=== PATIENT | female | born 1995 | race Caucasian/White ===

== ENCOUNTER → 2022-03-09 12:55 | Outpatient (CLI) | payer BC, SELFPAY ==
[2022-03-09 13:22] LABS: Appearance Urine UA CLEAR; Bilirubin Urine UA NEGATIVE (NEGATIVE); Color Urine UA YELLOW; Glucose Urine UA NEGATIVE (Negative); Ketones Urine UA NEGATIVE (NEGATIVE); Leukocyte Esterase Urine UA TRACE (NEGATIVE); Nitrite Urine UA NEGATIVE (Negative); Occult Blood Urine UA NEGATIVE (Negative); Protein Urine UA NEGATIVE (Negative); Specific Gravity Urine UA <=1.005 (1.000-1.035); Urobilinogen Urine UA 0.2 E.U./dL (0.2)
[2022-03-09 13:23] LABS: pH Urine UA 6.5 (4.5-8.0)
[2022-03-09 18:49] LABS: Bacteria Urine Occasional (0-1); RBC Urine 0-1/HPF (0-5/HPF); Squamous Epithelial Cell Urine 0-1 /HPF (0-5/HPF); WBC Urine 1-5/HPF (0-5/HPF)
== END ==
PROVIDERS: Visit Provider Family Medicine
DX: Z34.00 Encounter for supervision of normal first pregnancy, unspecified trimester (principal)
CPT/HCPCS: 81001; 87086

== ENCOUNTER → 2022-03-19 11:14 | Outpatient (CLI) | payer BC, SELFPAY ==
[2022-03-19 12:18] LABS: Add Manual Diff / Slide Review NO; Basophils Absolute Auto 0 /uL (0-100); Basophils Percent Auto 0.2 % (0-2); Eosinophils Absolute Auto 100 /uL (0-450); Eosinophils Percent Auto 0.6 % (2-4); Hematocrit 41.3 % (36-46); Hemoglobin 13.9 g/dL (12.0-16.0); Lymphocytes Absolute Auto 1800 /uL (1100-4500); Lymphocytes Percent Auto 19.3 % (25-40); Mean Corpuscular HGB Conc 33.7 % (30-36); Mean Corpuscular Hemoglobin 30.7 PG (26-34); Mean Corpuscular Volume 90.9 fL (80-100); Monocytes Absolute Auto 600 /uL (0-900); Monocytes Percent Auto 6.8 % (3-14); Neutrophils Absolute Auto 6900 /uL (1500-7000); Neutrophils Percent Auto 73.1 % (50-75); Platelet Count 256 X10^3/uL (150-400); Red Blood Cell Count 4.54 X10^6/uL (4.0-5.2); Red Cell Distribution Width 12.9 % (11.6-14.8); White Blood Cell Count 9.5 X10^3/uL (4.5-11.0)
[2022-03-19 13:29] LABS: HIV 1 & 2 Ab/Ag 4th Gen Combo NEGATIVE (NEGATIVE); Hep C Virus Ab w/Reflex Quant NEGATIVE s/c (NEGATIVE); Hepatitis B Surface Antigen NEGATIVE s/c (NEGATIVE); Rubella Antibody IgG 5.8 IU/mL (>15)
[2022-03-20 07:11] LABS: Varicella IgG Antibody <135 index (Immune >165)
[2022-03-20 08:05] LABS: RPR Screen Non Reactive (Non Reactive)
== END ==
PROVIDERS: Referring Provider Family Medicine; Visit Provider Family Medicine
DX: Z34.00 Encounter for supervision of normal first pregnancy, unspecified trimester (principal)
CPT/HCPCS: 36415; 80055; 86787; 86803; 86850; 86900; 86901; 87389

== ENCOUNTER → 2022-05-13 16:48 | Outpatient (CLI) | payer BC, SELFPAY ==
[2022-05-15 21:07] LABS: AFP, Serum 36.6 ng/mL (.); Calc Gestational Age Ultrasound (.); Estriol, Free 1.74 ng/mL (.); Inhibin A, Dimeric 45.02 pg/mL (.); Inhibin A, MoM 0.32 (.); Maternal Ethnicity Caucasian (.); Maternal Weight 165 lbs (.); Number of Fetuses No (.); OSBR Risk 1 IN 10000 (.); Results Report (.); Test Results *Screen Negative* (.); hCG, MoM 0.35 (.); hCG, Serum 10796 mIU/mL (.)
== END ==
PROVIDERS: Referring Provider Family Medicine; Visit Provider Family Medicine
DX: Z34.00 Encounter for supervision of normal first pregnancy, unspecified trimester (principal); Z3A.17 17 weeks gestation of pregnancy; Z34.92 Encounter for supervision of normal pregnancy, unspecified, second trimester
CPT/HCPCS: 36415; 82105; 82677; 84702; 86336

== ENCOUNTER → 2022-06-03 14:15 | Outpatient (CLI) | payer BC, SELFPAY ==
--- NOTE | 2022-06-03 14:16 | DI.US.S_ITS ---
PROCEDURE: US OB >= 14 WEEKS FETUS INDICATIONS: Anatomy Scan OUTSIDE/PRIOR DATING DATA: Last menstrual period (LMP): 01/02/22. LMP-based estimated date of delivery (SURESH): 10/09/22. First dating scan (date and location): 06/03/22, current study. Estimated date of delivery (SURESH) from first dating scan: 10/17/22. The calculations are made using the LMP SURESH of 10/09/22, and separate calculations were also made using an outside sonographic SURESH of 10/19/22. There is no documentation of this ultrasound. TECHNIQUE: Real-time scanning was performed of the fetus, with image documentation and biometric measurements. Endovaginal scanning: Not performed COMPARISON: None. FINDINGS: General: A single living intrauterine gestation is present. Presentation: Vertex. Placenta: Placental position is anterior , without previa. Amniotic fluid index: 13.8 cm, normal range is 5-24 cm. Single deepest vertical pocket is 4.1 cm. heart rate: 131 beats per minute. Maternal cervical canal: Closed and 4.6 cm long. Normal lower limit is 2.5 cm. biometrics: Biparietal diameter: 4.7 cm, 20 weeks, two days Head circumference: 17.8 cm, 20 weeks, two days Abdominal circumference: 16.0 cm, 21 weeks, one day Femur length: 3.4 cm, 20 weeks, four days LMP based gestational age: 21 weeks, five days Reported outside first-trimester ultrasound gestational age: 20 weeks, two days Composite gestational age from present scan: 20 weeks, four days Estimated weight and percentile: 378 g. Using LMP SURESH, this is a 9th percentile. Using reported first-trimester ultrasound gestational age, fetus is at 74th percentile. Anatomic survey: Neuro: Ventricles are non-dilated at less than 10 mm. Cisterna magna is normal at 3-11 mm. Cerebellum is normal in size and morphology. Nuchal skin fold: Normal at less than 6 mm between 14-21 weeks gestational age. Face: Nose and lips, facial profile are normal. Spine: No evidence for spina bifida. Heart: 4-chambered heart is present, with normal ventricular outflow tracts. Diaphragm: Diaphragm is intact. Stomach: Left-sided stomach is present. Kidneys: No hydronephrosis. Normal is less than 5 mm in 2nd trimester, less than 7 mm in 3rd trimester. Cord: 3-vessel cord has orthotopic insertion. Bladder: Normal in size. Extremities: All 4 extremities identified. IMPRESSION: 1. Single living intrauterine . 2. Symmetric growth and normal anatomy. 3. Please verify working SURESH. Estimated weight based on LMP SURESH is at the 9th percentile. Estimated weight based on reported, undocumented first-trimester ultrasound is at the 74th percentile. We strive to produce accurate, complete, and clear reports of imaging services. To assist us in improving patient care, this report was composed using standard report templates and voice recognition software. Therefore, it may contain abnormal punctuation, insertions and/or omissions. Occasional wrong-word or sound-alike substitutions may occur. Though we review the report and make efforts to correct it, we do recommend that the report be read carefully in proper context to recognize any text inaccuracies. Dictated by: Rosita Reynolds M.D. on 06/03/2022 at 17:45 Approved by: Rosita Reynolds M.D. on 06/03/2022 at 17:56
== END ==
PROVIDERS: Referring Provider Family Medicine; Visit Provider Family Medicine
DX: Z34.92 Encounter for supervision of normal pregnancy, unspecified, second trimester (principal); Z3A.20 20 weeks gestation of pregnancy
CPT/HCPCS: 76811

== ENCOUNTER → 2022-08-05 15:16 | Outpatient (CLI) | payer BC, SELFPAY ==
[2022-08-05 17:45] LABS: Add Manual Diff / Slide Review NO; Basophils Absolute Auto 0 /uL (0-100); Basophils Percent Auto 0.2 % (0-2); Eosinophils Absolute Auto 100 /uL (0-450); Eosinophils Percent Auto 0.6 % (2-4); Hematocrit 34.7 % (36-46); Hemoglobin 12.1 g/dL (12.0-16.0); Lymphocytes Absolute Auto 1600 /uL (1100-4500); Lymphocytes Percent Auto 14.1 % (25-40); Mean Corpuscular HGB Conc 34.8 % (30-36); Mean Corpuscular Hemoglobin 31.5 PG (26-34); Mean Corpuscular Volume 90.6 fL (80-100); Monocytes Absolute Auto 700 /uL (0-900); Monocytes Percent Auto 6.1 % (3-14); Neutrophils Absolute Auto 8800 /uL (1500-7000); Platelet Count 210 X10^3/uL (150-400); Red Blood Cell Count 3.84 X10^6/uL (4.0-5.2); Red Cell Distribution Width 12.9 % (11.6-14.8); White Blood Cell Count 11.2 X10^3/uL (4.5-11.0)
[2022-08-05 17:59] LABS: GTT (PREG) 1 Hour PP 50gm Dose 97 mg/dL (76-139)
[2022-08-05 18:52] LABS: TSH w/ Reflex to FT4 1.15 uIU/mL (0.47-4.68)
== END ==
PROVIDERS: Referring Provider Family Medicine; Visit Provider Family Medicine
DX: Z34.00 Encounter for supervision of normal first pregnancy, unspecified trimester (principal); E03.9 Hypothyroidism, unspecified
CPT/HCPCS: 36415; 82950; 84443; 85025

== ENCOUNTER → 2022-09-23 16:11 | Outpatient (CLI) | payer BC, SELFPAY ==
[2022-09-24 15:31] LABS: Strep Grp B PCR NEG for Grp B Strep
== END ==
PROVIDERS: Visit Provider Family Medicine
DX: Z36.85 Encounter for antenatal screening for Streptococcus B (principal)
CPT/HCPCS: 87653

== ENCOUNTER → 2022-09-24 15:00 | Outpatient (CLI) | payer BC, SELFPAY ==
--- NOTE | 2022-10-09 14:27 | P.HOLT.S_ITS ---
Apprentice Pattern Maker Report Referral & Results Date Patient Seen: 09/24/22 Requesting provider: Alicia Goyal Indication: Tachycardia Duration of monitoring (days): 7 Diary information: There were 3 patient triggered events and 3 patient diary entries Patient triggered events were associated with sinus rhythm only Patient diary events were associated with sinus rhythm and PACs Data: Minimum heart rate identified was 56 beats per minute at 00:20 on 09/25/2022 Maximum heart rate was sinus rhythm and 132 beats per minute at 21:27 on Less than 1% of identified beats were ventricular or supraventricular ectopic in origin, which would classify them as rare. There were no pauses of 3 seconds or longer, episodes of atrial fibrillation, or episodes of SVT identified on this study Impression: 7+ day cardiac monitor technician demonstrating rare supraventricular ectopy primarily as above. Clinical correlation suggested
== END ==
PROVIDERS: Referring Provider Family Medicine; Visit Provider Family Medicine
DX: R00.0 Tachycardia, unspecified (principal)
CPT/HCPCS: 93242; 93248

== ENCOUNTER 2022-10-07 16:27 | Outpatient (CLI) | payer BC, SELFPAY ==
--- NOTE | 2022-10-07 17:29 | PM.OBTRLD ---
Visit Information Visit Information Date of evaluation: 10/07/22 Primary OB Provider: Alicia Goyal Reason for Evaluation: Yes non-stress test Comments/Additional reasons for admission: 27yo at 38w2d here for NST due to FHT at 117 in clinic persistently. Pt is feeling her baby move regularly. No LOF, contractions, bleeding. [facility] Medical History (Updated 10/07/22 @ 17:48 by Alicia Goyal MD) Anxiety Depression Headache (~2008) Migraines (~2008) Surgical History (Updated 02/26/22 @ 11:31 by Pricilla Denton RN) History of wisdom tooth extraction Family History (Updated 03/08/22 @ 21:07 by Wendy Okeefe) Father Hypertension Grandfather Stomach cancer Grandmother Breast cancer Grandfather History of heart disease History of kidney problems Alzheimer's disease Social History marital status: number of children: 0 household members: spouse lives independently: Yes housing: house pets and animals: Yes (dogs, Cats - Toxoplasmosis aware) education level: college occupational status: employed and student current occupational exposures/hazards: No special tobias needs: No seatbelt use: always water heater temp set < 120 deg: No (will lower) working smoke detector in home: Yes fire extinguisher in home: Yes carbon monox detector in home: Yes firearms in home: Yes firearms unloaded and locked: Yes do you feel safe at home: Yes Smoking Status: Never smoker second hand exposure: No alcohol intake: former substance use type: 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 NST reactive today. Continue regular care. OB Disposition: home
== END 2022-10-07 17:45 | disposition home or self-care (01) ==
LOC: OB 10-12 07:58
PROVIDERS: Referring Provider Family Medicine; Visit Provider Family Medicine
DX: O36.8330 Maternal care for abnormalities of the fetal heart rate or rhythm, third trimester, not applicable or unspecified (principal); Z3A.38 38 weeks gestation of pregnancy
CPT/HCPCS: 59025; G0378; G0379

== ENCOUNTER 2022-10-22 12:58 | Observation (INO) | payer BC, SELFPAY ==
--- NOTE | 2022-10-22 15:20 | PM.OBTRLD ---
Visit Information Visit Information Date of evaluation: 10/22/22 Primary OB Provider: Alicia Goyal On-call OB Provider: Katie Lima Reason for Evaluation: Yes rule out labor Vital Signs Vital Signs: Temperature 37.1? blood pressure 137/85 heart rate 81 PFSH Medical History Anxiety Depression Headache (~2008) Migraines (~2008) Surgical History History of wisdom tooth extraction Family History Father Hypertension Grandfather Stomach cancer Grandmother Breast cancer Grandfather History of heart disease History of kidney problems Alzheimer's disease Social History marital status: number of children: 0 household members: spouse lives independently: Yes housing: house pets and animals: Yes (dogs, Cats - Toxoplasmosis aware) education level: college occupational status: employed and student current occupational exposures/hazards: No special tobias needs: No seatbelt use: always water heater temp set < 120 deg: No (will lower) working smoke detector in home: Yes fire extinguisher in home: Yes carbon monox detector in home: Yes firearms in home: Yes firearms unloaded and locked: Yes do you feel safe at home: Yes Smoking Status: Never smoker second hand exposure: No alcohol intake: former substance use type: 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 weight has: remained stable well-balanced diet: about half the time daily servings fruits/ve-1 caffeine: Yes (200mg limit) Type(s) of exercise: walking, regular exercise and yoga frequency: 3-4 times per week Evaluation Evaluation Baseline heart rate: 120 Variability: Moderate (11-25) monitor accelerations: Present Monitor Decelerations: Absent Contraction Frequency (minutes): 3 Category of Tracing: Reactive Status: Category l Cervical dilation (cm): 2 Cervical effacement (%): 90 station: -3 Diagnosis, Plan/Disposition Final Diagnosis (1) 40 weeks gestation of : Status: Acute Plan/Disposition Plan: 27-year-old at 40 weeks and 3 days gestation here for labor check. She was raman every 5-7 minutes though contractions spaced towards the end of her stay in the center. NST reactive. Cervix was unchanged after 2 hours, likely an early labor. 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 OB Disposition: home
== END 2022-10-22 15:32 | disposition home or self-care (01) ==
PROVIDERS: Admitting Provider Family Medicine; Referring Provider Family Medicine; Visit Provider Family Medicine
DX: O48.0 Post-term pregnancy (principal); Z3A.40 40 weeks gestation of pregnancy
CPT/HCPCS: 59025; 59050; 84112; G0378; G0379

== ENCOUNTER 2022-10-22 21:34 | Inpatient (IN) | payer BC, SELFPAY ==
[2022-10-22 22:18] VITALS: BP 133/84
[2022-10-22 22:39] LABS: Add Manual Diff / Slide Review NO; Basophils Absolute Auto 0 /uL (0-100); Basophils Percent Auto 0.1 % (0-2); Eosinophils Absolute Auto 0 /uL (0-450); Eosinophils Percent Auto 0.1 % (2-4); Hematocrit 37.5 % (36-46); Hemoglobin 12.3 g/dL (12.0-16.0); Lymphocytes Absolute Auto 1500 /uL (1100-4500); Lymphocytes Percent Auto 9.4 % (25-40); Mean Corpuscular HGB Conc 32.9 % (30-36); Mean Corpuscular Hemoglobin 29.3 PG (26-34); Mean Corpuscular Volume 89.3 fL (80-100); Monocytes Absolute Auto 800 /uL (0-900); Monocytes Percent Auto 5.1 % (3-14); Neutrophils Absolute Auto 13500 /uL (1500-7000); Neutrophils Percent Auto 85.3 % (50-75); Platelet Count 250 X10^3/uL (150-400); White Blood Cell Count 15.8 X10^3/uL (4.5-11.0)
[2022-10-22 22:43] LABS: COVID19 -Nasal RAPID Negative (Negative)
[2022-10-23] MEDS: LACTATED RINGERS 1,000 ML 999 ML IV (00:05)
[2022-10-23] MEDS: fentaNYL 100 MCG/2 ML INJ 50 MCG IV (00:11)
[2022-10-23] MEDS: FENT 2MCG/ML BUPIV 0.125% EPI 200 MCG/100 ML PLAST..BAG 6 MCG EPIDURAL (00:50)
[2022-10-23] MEDS: TERBUTALINE 1 MG/ML VIAL SUBCUT (01:48)
--- NOTE | 2022-10-23 02:15 | PM.OBHP.IH.1 ---
OB HPI Date/Time Date of admission: 10/22/22 Date Patient Seen: 10/23/22 Time Patient Seen: 02:15 History of Present Condition Chief complaint: observation of labor SURESH Calculator Estimated Delivery Date Method Current WG Current Estimate 10/19/22 Manual 40w 4d Final SURESH - TUYET Other Estimates 10/09/22 LMP (Uncertain) 42w 0d 10/19/22 Ultrasound #1 40w 4d Estimated Gestational Age (weeks): 40w4d : 1 Para: 0 Narrative: Pt is a 27yo at 40w4d who presented with leaking fluid. The pt reports having a gush of fluid around 20:30. Her contractions began getting more intense shortly after. She denies any vaginal bleeding. She was in L&D earlier in the day yesterday for r/o labor, with her cervix unchanging. The pts has been uncomplicated. care: good care, initiated at week # (8) and pounds weight gain (36) Dating criteria OB: based on 1st trimester US only Ultrasounds: normal 1st trimester US and normal mid trimester US Obstetrical complications: none Medical complications OB: none Preadmission Labs Last OB Lab Results: Blood Type O Positive 10/22/22 22:15 Antibody Screen Negative 10/22/22 22:15 Hematocrit 37.5 % (36-46) 10/22/22 22:15 Hemoglobin 12.3 g/dL (12.0-16.0) 10/22/22 22:15 Hepatitis B Surface Antigen Negative s/c (NEGATIVE) 03/19/22 11:20 Hepatitis C Antibody Negative s/c (NEGATIVE) 03/19/22 11:20 Rubella Antibody 5.8 IU/mL (>15) L 03/19/22 11:20 Varicella-Zoster IgG Antibody <135 index (Immune >165) L 03/19/22 11:20 Glucose 1 Hour 97 mg/dL (76-139) 08/05/22 16:21 Group B Streptococcus (PCR) Neg for grp b strep 09/23/22 16:11 -: Urine: negative Genetic Screens: Quad screen: Normal External Labs -: Urine: negative Evaluation Evaluation Baseline heart rate: 130 Variability: Moderate (11-25) monitor accelerations: Present Monitor Decelerations: Absent Status: Category l Dilation (cm): 6 Effacement (%): 80 PFSH Medical History Anxiety Depression Headache (~2008) Migraines (~2008) Surgical History History of wisdom tooth extraction Family History Father Hypertension Grandfather Stomach cancer Grandmother Breast cancer Grandfather History of heart disease History of kidney problems Alzheimer's disease Social History marital status: number of children: 0 household members: spouse lives independently: Yes housing: house pets and animals: Yes (dogs, Cats - Toxoplasmosis aware) education level: college occupational status: employed and student current occupational exposures/hazards: No special tobias needs: No seatbelt use: always water heater temp set < 120 deg: No (will lower) working smoke detector in home: Yes fire extinguisher in home: Yes carbon monox detector in home: Yes firearms in home: Yes firearms unloaded and locked: Yes do you feel safe at home: Yes Smoking Status: Never smoker second hand exposure: No alcohol intake: former substance use type: 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 weight has: remained stable well-balanced diet: about half the time daily servings fruits/ve-1 caffeine: Yes (200mg limit) Type(s) of exercise: walking, regular exercise and yoga frequency: 3-4 times per week Meds Home Medications and Allergies Home Medications Medication Instructions Recorded Confirmed Type prenat.vits,valeria,[id number] 1 tab PO DAILY 02/26/22 10/22/22 History breast pump #1 ea 09/16/22 10/22/22 Rx Allergies Allergy/AdvReac Type Severity Reaction Status Date / Time No Known Drug Allergies Allergy Unverified 10/21/22 10:08 OB Exam Narrative Exam Narrative: Gen: NAD, sitting comfortably in bed, appears well CV: RRR, no murmurs Resp: clear to auscultation bilaterally Abd: soft, nontender, gravid Ext: no edema Objective Labs Result Diagrams: 10/22/22 22:15 Labs: Laboratory Results - last 24 hr 10/22/22 10/22/22 10/22/22 22:05 22:15 22:15 WBC 15.8 H RBC 4.20 Hgb 12.3 Hct 37.5 MCV 89.3 MCH 29.3 MCHC 32.9 RDW 13.0 Plt Count 250 Neut % (Auto) 85.3 H Lymph % (Auto) 9.4 L [place] % (Auto) 5.1 Eos % (Auto) 0.1 L Baso % (Auto) 0.1 Neut # (Auto) 20884 H Lymph # (Auto) 1500 [place] # (Auto) 800 Eos # (Auto) 0 Baso # (Auto) 0 SARS-CoV-2 (PCR) Negative Blood Type O Positive Antibody Screen Negative Assessment and Plan Assessment and Plan Assessment and Plan narrative: 27yo at 40w4d here in active labor with SROM at home. GBS negative, Rh positive. Pt with prolonged deceleration to the 60s lasting nearly 10 minutes. Improved after position change to hands and knees, terbutaline, oxygen, and fluid bolus. FHT now reassuring and Category I. Most likely due to brief cord compression/more rapid descent or cervical change. - Expectant management, cautiously monitoring FHT, which are now reassuring. If with decels again, would recommend . This was discussed with the patient. - GBS negative, no prophylaxis indicated - Epidural in place for pain control
[2022-10-23] MEDS: LACTATED RINGERS 1,000 ML 100 ML IV (02:44)
[2022-10-23] MEDS: CEFAZOLIN 2 GM/100 ML PREMIX 100 ML IV (05:18)
--- NOTE | 2022-10-23 05:56 | SUR.OPER ---
quarter folder arrived to OR with patient on the table bump in place, , OB RN, Anesthesiologists, RT Present, Myers in place from OB
--- NOTE | 2022-10-23 06:08 | SUR.OPER ---
Supine on Padded OR bed, head on pillow, safety belt at thigh, arms secured on padded arm boards at <90 degrees abduction. Bump under right buttock. Legs uncrossed with pillow under knees, gel pad to heels, tape over blanket to lower legs.
[2022-10-23 06:40] VITALS: BP 95/53; PULSE 92; RESP 16; TEMP 36.5; O2SAT 100
[2022-10-23 06:46] VITALS: BP 94/53; PULSE 87; RESP 16; O2SAT 100
--- NOTE | 2022-10-23 06:47 | RT ---
RESPONDED TO CRASH , STIMULATED BABY AND MACARIO ABG AND VENOUS OFF OF CORD, LEFT BABY IN CARE OF THE RN
[2022-10-23 06:49] VITALS: BP 103/57; PULSE 87; RESP 16; TEMP 36.6; O2SAT 100
--- NOTE | 2022-10-23 07:15 | PM.OBPNLAB ---
Date/Time Date Patient Seen: 10/23/22 Pain Control Pain control: epidural Pelvic Exam Dilation (cm): 6 Effacement (%): 90 station: -1 Status status: Category lll Heart Rate Baseline: 60 Monitor Accelerations: Absent Monitor Decelerations: Prolonged Monitor Variability: Moderate Assessment and Plan Comments: * Late entry * 27yo at 40w4d here in active labor with SROM at home.? GBS negative, Rh positive.? Pt with intermittent late decels, now with repeat prolonged decel to the 50s and not recovering with position changes. Decision was made to proceed with emergent for nonreassuring heart tones. FHT did improve to the 100-110s prior to removal from monitoring. FHT 130s in the OR. Pt consented to surgery prior to incision. Risks discussed including but not limited to infection, bleeding/hemorrhage, injury to other organs such as the bowel/bladder, injury to fetus. The pt is agreeable to blood transfusion if medically necessary. Consent was signed and placed in chart. The pt will receive Ancef prior to surgery. SCDs to be placed.
--- NOTE | 2022-10-23 07:31 | PM.PREOP ---
Pre-operative Note COVID-19 COVID-19 status: Negative Result date/Date tested (Pos, Neg/Pending): 10/22/22 Interval Note History & Physical reviewed/Exam performed by Physician: Yes Changes to H&P: No
--- NOTE | 2022-10-23 07:32 | PM.OBCS.1 ---
Operative Date/Time/Diagnoses Date of procedure: 10/23/22 Time of procedure: 05:30 Pre-op diagnosis: 40w4d gestation GBS negative Rh positive Nonreassuring FHT with Category III tracing Post-op diagnosis: same Procedure & Clinicians Procedure: Primary Same procedure as scheduled: Yes Indications: Nonreassuring heart tones Surgeon: Alicia Goyal Click Yes if Unassisted: No Boat Master: Katie Lima Anesthesia Type: Epidural Operative Notes Findings: Normal uterus, ovaries, and tubes Closure Type: primary Specimen(s): cord blood and cord pH Intraoperative meds administered: Duramorph, Ketorolac and Pitocin Applied: Catheter Estimated Blood Loss (mL): 750 Blood products transfused: none Procedure in detail: OPERATIVE COURSE: The patient was taken to the operating room where epidural anesthesia was rebolused. She was then prepared and draped in the normal sterile fashion in the dorsal supine position with a leftward tilt. Anesthesia was tested and found to be adequate. A Pfannensteil skin incision was then made with the scalpel and carried through to the underlying layer of fascia with the bovie[]scalpel. The fascia was incised in the midline and the incision extended laterally with the Palafox scissors. The superior aspect of the fascial incision was then grasped with Ronni clamps, elevated with the help of the surgical instrument technician, and the underlying rectus muscles dissected off bluntly and sharply where needed. Attention was then turned to the inferior aspect of the incision which, in a similar fashion, was grasped, tented up with Ronni clamps, and the rectus muscle dissected off bluntly and sharply with Palafox scissors. The rectus muscles were then in the midline, and the peritoneum was identified and entered bluntly. The peritoneal incision was then extended with good visualization of the bladder. Retraction was provided by the surgical instrument technician. The bladder blade was then inserted and the vesicouterine peritoneum identified, grasped with pick-ups and entered sharply with the Metzenbaum scissors. The incision was then extended laterally and the bladder flap created digitally. The bladder blade was then reinserted and the lower uterine segment incised in a transverse fashion with the scalpel, with the surgical instrument technician providing suction. The uterine incision was then extended superolaterally by pulling superolaterally on both sides. Membranes were ruptured and fluid was clear. The bladder blade was removed the infant's head was flexed out of OP position and delivered atraumatically, with fundal pressure by the surgical instrument technician. Body cord was unwrapped after delivery. The nose and mouth were suctioned with bulb suction and the cord was clamped and cut after 1 minute. The infant was handed off to the waiting nursing staff. Cord blood was collected for Rh status. Cord gases were sent. The placenta was then delivered with gentle cord traction. The uterus was then exteriorized and cleared of all clots and debris. The uterine incision was repaired with O-Vicryl in a running, locked fashion. A second layer of the same suture was used for imbrication. A figure of eight with O Vicryl was used on the left side of the incision for excellent hemostasis. The uterus was returned to the abdomen. The gutters were cleared of all clots. Hysterotomy was investigated and found to be hemostatic. The bladder flap was closed with 3-O Chromic. The peritoneum was closed with 3-O Vicryl. The fascia was reapproximated with O Vicryl in a running fashion. The subcutaneous tissue was reapproximated with 3-O Vicryl. The skin was closed with 4-O Vicryl. The surgical instrument technician helped with retraction during closures. SPONGE AND NEEDLE COUNTS: Correct x3. DRESSING: Aquacel ANTICOAGULATION: SCDs applied prior to Surgery Preop antibiotics given (see MAR). The patient was taken to recovery room having tolerated procedure well. Complications: none Baby 1: Gender: Male Presentation: vertex Position: Occiput Posterior Placental Delivery Description: Spontaneous Cord Vessel Description: 3 Vessels and Around Body x1 score (1 min): 9 score (5 min): 9 weight: 8 lb 3.219 oz Post-operative Condition: stable Disposition: PACU Aftercare: routine postop
[2022-10-23] MEDS: OXYCODONE IR 5 MG TABLET PO ×3 (10:33→21:06)
[2022-10-23] MEDS: DOCUSATE 100 MG CAPSULE 200 MG PO (10:34)
[2022-10-23] MEDS: ACETAMINOPHEN 325 MG TABLET 650 MG PO ×3 (10:34→23:43)
[2022-10-23] MEDS: PRENATAL VIT,CALC/IRON/FOLIC 1 TABLET 1 TAB PO (10:34)
[2022-10-23] MEDS: KETOROLAC 30 MG/ML VIAL IV ×3 (11:52→23:42)
[2022-10-24] MEDS: IBUPROFEN 600 MG TABLET PO ×2 (05:18→13:05)
[2022-10-24] MEDS: ACETAMINOPHEN 325 MG TABLET 650 MG PO ×2 (05:19→13:06)
[2022-10-24] MEDS: OXYCODONE IR 5 MG TABLET PO ×3 (05:19→15:29)
[2022-10-24 08:20] LABS: Add Manual Diff / Slide Review NO; Basophils Absolute Auto 0 /uL (0-100); Basophils Percent Auto 0.2 % (0-2); Eosinophils Absolute Auto 0 /uL (0-450); Eosinophils Percent Auto 0.4 % (2-4); Hematocrit 28.3 % (36-46); Hemoglobin 9.5 g/dL (12.0-16.0); Lymphocytes Absolute Auto 1300 /uL (1100-4500); Lymphocytes Percent Auto 11.5 % (25-40); Mean Corpuscular HGB Conc 33.4 % (30-36); Mean Corpuscular Hemoglobin 29.7 PG (26-34); Mean Corpuscular Volume 88.8 fL (80-100); Monocytes Absolute Auto 1100 /uL (0-900); Monocytes Percent Auto 9.4 % (3-14); Neutrophils Absolute Auto 8800 /uL (1500-7000); Neutrophils Percent Auto 78.5 % (50-75); Platelet Count 172 X10^3/uL (150-400); Red Blood Cell Count 3.19 X10^6/uL (4.0-5.2); Red Cell Distribution Width 13.3 % (11.6-14.8); White Blood Cell Count 11.3 X10^3/uL (4.5-11.0)
[2022-10-24] MEDS: PRENATAL VIT,CALC/IRON/FOLIC 1 TABLET 1 TAB PO (09:25)
[2022-10-24] MEDS: DOCUSATE 100 MG CAPSULE 200 MG PO (09:26)
[2022-10-24 09:27] VITALS: TEMP 36.6
[2022-10-24 13:05] VITALS: TEMP 36.8
[2022-10-24 13:06] VITALS: TEMP 36.8
--- NOTE | 2022-10-24 14:05 | PM.OBDS.1 ---
Discharge Providers Provider Date of admission: 10/22/22 21:34 Discharge Date: 10/24/22 Primary care physician: Katie Lima DO Consults: 10/23/22 07:16 Consult to Open Hearth Worker Routine Comment: Discharge provider: Alicia Goyal MD Summary Hospital Course Date Patient Seen: 10/24/22 Time Patient Seen: 14:05 Diagnoses: 40w4d gestation GBS negative Rh positive Nonreassuring FHT with Category III tracing Primary Acute blood loss anemia Hospital Course: The pt presented in active labor with SROM at home. She progressed to 6cm, and then had a prolonged deceleration that recovered with position changes and terbutaline. The pt then had intermittent late decels, and ultimately a prolonged decel to the 60s. She was taken emergently to the OR, where FHT had improved. Due to nonreassuring FHT, the pt underwent primary without complications. She delivered a viable baby boy with APGARs 9/9. , there were no complications. At the time of discharge she was voiding, ambulating, and passing flatus without difficulty. Her lochia was decreasing appropriately. She was with good latch. Her pain was well controlled. She will f/u in clinic in 1 week for incision check. Peripartum Data Infant Delivery Method: Section Procedures: Primary complications: none [place] 1: Gender: Male Disposition of : home Discharge Diagnosis (1) Acute blood loss anemia: Status: Acute (2) Non-reassuring heart tones, delivered, current hospitalization: Status: Acute (3) S/P : Status: Acute (4) Category III heart rate tracing during labor and delivery: Status: Acute Status at Discharge Cognitive/behavioral status at discharge: oriented Functional status at discharge: independent ambulation Overall status at discharge: patient is progressing back to baseline Time Spent with Patient Time attestation: Total time spent providing and/or coordinating discharge services: Objective Labs Result Diagrams: 10/24/22 07:58 Labs: Laboratory Results - last 24 hr 10/24/22 07:58 WBC 11.3 H RBC 3.19 L Hgb 9.5 L Hct 28.3 L MCV 88.8 MCH 29.7 MCHC 33.4 RDW 13.3 Plt Count 172 Neut % (Auto) 78.5 H Lymph % (Auto) 11.5 L [place] % (Auto) 9.4 Eos % (Auto) 0.4 L Baso % (Auto) 0.2 Neut # (Auto) 8800 H Lymph # (Auto) 1300 [place] # (Auto) 1100 H Eos # (Auto) 0 Baso # (Auto) 0 Exam Vital Signs (past 8 hours): - 10/24/22 09:27 10/24/22 13:05 10/24/22 13:06 Temperature 97.8 F 98.2 F 98.2 F Oxygen Delivery Method Room Air Resp Auscultation: clear to auscultation bilaterally Cardio Rate: regular rate Rhythm: regular rhythm Heart Sounds: S1 normal, S2 normal and no murmurs GI Inspection: non-distended and incision (dressing c/d/i) Palpation: soft, No guarding and tender (appropriately tender) Auscultation: normal bowel sounds Other: fundus firm and below the umbilicus Extrem Right upper extremity: no edema Discharge Plan Discharge Plan Patient Disposition: Home Discharge orders & Medications Prescriptions: New acetaminophen 325 mg Tablet 650 mg PO Q6H PRN (Reason: Fever/Mild Pain (1-3)) Qty: 30 0RF docusate sodium 100 mg Capsule 200 mg PO DAILY Qty: 30 0RF ibuprofen 600 mg Tablet 600 mg PO Q6H PRN (Reason: Fever/Mild Pain (1-3)) Qty: 30 0RF oxycodone 5 mg Tablet 5 mg PO Q4H PRN (Reason: Pain, Moderate (4-6)) Qty: 30 0RF ferrous sulfate 325 mg (65 mg iron) tablet 325 mg PO DAILY Qty: 30 0RF Continued (DME) breast pump Device See Rx Instructions .ROUTE .MEDSUPPLY Qty: 1 0RF Rx Instructions: As directed prenat.vits,valeria,[id number] Tablet 1 tab PO DAILY Follow up/Referrals: Alicia Goyal MD [Physician] - 10/28/22 10:00 am Katie Lima DO [Primary Care Provider] - Diet/Activity/Treatments Diet: Diet as Tolerated and Regular Skin/Wound/Dressing Care Report to your healthcare provider any signs of infection, such as:: chills, fever, increased pain and unusual drainage Visit Report/Discharge Packet Instructions: DI for , DI for and Nipple Soreness, DI for Prescription Opioid Use Stand Alone Forms: Discharge: Care Visit Report Forms: Patient Portal/API, Stroke Signs & Symptoms Discharge Data Primary Care Provider: Katie Lima Discharges patient from system. Discharge Date/Time: 10/24/22 16:55
[2022-10-24 15:17] VITALS: BP 123/73; PULSE 78; RESP 16; TEMP 36.8
[2022-10-24 15:29] VITALS: TEMP 36.8
[2022-10-24] MEDS: MEASLES,MUMPS,RUBELLA VACC/PF 0.5 ML VIAL SUBCUT (15:34)
== END 2022-10-24 16:55 | disposition home or self-care (01) | DRG 788 ==
PROVIDERS: Admitting Provider Family Medicine; PCP Family Medicine; Referring Provider Family Medicine; Visit Provider Family Medicine
PROC: 10D00Z1 Extraction of Products of Conception, Low, Open Approach (ICD-10-PCS; CPT 59514; principal; 2022-10-23 05:15)
DX: O76 Abnormality in fetal heart rate and rhythm complicating labor and delivery (principal); Z3A.40 40 weeks gestation of pregnancy; Z37.0 Single live birth; Z20.822 Contact with and (suspected) exposure to COVID-19; O48.0 Post-term pregnancy
CPT/HCPCS: 36415; 59025; 59050; 59510; 59514; 84112; 85025; 86850; 86900; 86901; 87635; C9803; G0378; G0379; J0690; J1885; J2250; J2274; J3010

== ENCOUNTER 2024-01-25 15:23 | Emergency (ER) | payer BC, SELFPAY ==
[2024-01-25] VITALS (11 sets, daily range): BP systolic 112–142; BP diastolic 67–81; PULSE 95–112; RESP 18–37; TEMP 37.1; O2SAT 94–100; BMI 27.4
--- NOTE | 2024-01-25 15:44 | DI.RAD.S_ITS ---
PROCEDURE: XR CHEST 1V INDICATIONS: chest pain TECHNIQUE: One view of the chest was acquired. COMPARISON: None. FINDINGS: Surgical changes and devices: None. Lungs and pleura: Lungs are clear. No pleural effusions or pneumothorax. Mediastinum: Mediastinal contours appear normal. Heart size is normal. Bones and chest wall: No suspicious bony lesions. Overlying soft tissues appear unremarkable. IMPRESSION: No acute cardiopulmonary abnormality is seen. Dictated by: Germania Barboza MD, PhD on 01/25/2024 at 16:20 Approved by: Germania Barboza MD, PhD on 01/25/2024 at 16:20
[2024-01-25 16:15] LABS: Bacteria Urine None Seen; Culture Indicated Urine Cult Not Indicated; RBC Urine None Seen (0-5/HPF); Squamous Epithelial Cell Urine 0-1 /HPF (0-5/HPF); Urine Volume Low Vol <10mL (spun); WBC Urine None Seen (0-5/HPF)
[2024-01-25 16:47] LABS: Add Manual Diff / Slide Review NO; Basophils Absolute Auto 100 /uL (0-100); Basophils Percent Auto 0.5 % (0-2); Eosinophils Absolute Auto 0 /uL (0-450); Eosinophils Percent Auto 0.1 % (2-4); Hematocrit 40.8 % (36-46); Hemoglobin 13.7 g/dL (12.0-16.0); Lymphocytes Absolute Auto 1200 /uL (1100-4500); Lymphocytes Percent Auto 10.9 % (25-40); Mean Corpuscular HGB Conc 33.7 % (30-36); Mean Corpuscular Hemoglobin 29.8 PG (26-34); Mean Corpuscular Volume 88.4 fL (80-100); Monocytes Absolute Auto 1100 /uL (0-900); Monocytes Percent Auto 9.7 % (3-14); Neutrophils Absolute Auto 8800 /uL (1500-7000); Neutrophils Percent Auto 78.8 % (50-75); Platelet Count 270 X10^3/uL (150-400); Red Blood Cell Count 4.61 X10^6/uL (4.0-5.2); Red Cell Distribution Width 13.6 % (11.6-14.8); White Blood Cell Count 11.2 X10^3/uL (4.5-11.0)
[2024-01-25 16:54] LABS: INR 1.1 (0.9-1.3); Prothrombin Time 12.6 SECONDS (9.4-12.5)
[2024-01-25 16:57] LABS: PTT Partial Thromboplastin Tim 39 SECONDS (25.1-36.5)
[2024-01-25 16:59] LABS: Alanine Aminotransferase 13 IU/L (<35); Albumin 4.1 g/dL (3.5-5.0); Albumin Globulin Ratio 1.2 (1.0-2.8); Alkaline Phosphatase 58 U/L (38-126); Aspartate Aminotransferase 19 IU/L (14-36); BUN Creatinine Ratio 7.8 (6-22); Bilirubin Total 0.5 mg/dL (0.2-1.3); Blood Urea Nitrogen 6 mg/dL (7-17); Carbon Dioxide 28 mmol/L (22-32); Chloride 105 mmol/L (98-107); Creatine Kinase 33 U/L (30-135); Estimated Glomerular Filt Rate > 60 mL/min (>60); Globulin 3.5 g/dL (1.7-4.1); Glucose 98 mg/dL (70-100); HEMOLYSIS < 15 (0-50); Lipase 54 U/L (23-300); Magnesium 1.7 mg/dL (1.6-2.3); Sodium 138 mmol/L (137-145); Total Protein 7.6 g/dL (6.3-8.2)
[2024-01-25 17:04] LABS: D Dimer 796 ng/ml (<500)
[2024-01-25 17:10] LABS: Troponin I < 0.012 ng/mL (0.01-0.034)
[2024-01-25 17:16] LABS: Pregnancy Test Serum,Qual Positive (Negative)
[2024-01-25 17:28] LABS: Influenza A - CEPHEID Flu A NEGATIVE (NEGATIVE); Influenza B - CEPHEID Flu B NEGATIVE (NEGATIVE); Respiratory Syncytial Virus Negative (Negative)
[2024-01-25 17:35] LABS: COVID-19 CEPHEID 4-PLEX PCR Negative (Negative)
[2024-01-25 17:56] LABS: HCG Quantitative /Beta subunit 3.5 mIU/mL
--- NOTE | 2024-01-25 19:03 | DI.US.S_ITS ---
PROCEDURE: US PERIPH VENOUS LOW EXTREM BI INDICATIONS: ELEVATED HEART RATE TECHNIQUE: Real-time imaging, as well as color and pulse Doppler interrogation, were performed of the deep veins of both legs from the inguinal ligament to the popliteal fossa, with documentation of the visualized calf veins. COMPARISON: None. FINDINGS: Right: The common femoral, femoral, popliteal, and the visualized calf veins are normally compressible, and free of intraluminal thrombus. Color and pulse Doppler demonstrate normal phasic intravascular flow. There is normal augmentation response to distal compression maneuver. Left: The common femoral, femoral, popliteal, and the visualized calf veins are normally compressible, and free of intraluminal thrombus. Color and pulse Doppler demonstrate normal phasic intravascular flow. There is normal augmentation response to distal compression maneuver. IMPRESSION: No evidence of DVT in visualized bilateral lower extremity veins. Dictated by: Toy Palomo M.D. on 01/25/2024 at 21:32 Approved by: Toy Palomo M.D. on 01/25/2024 at 21:32
[2024-01-25] MEDS: ACETAMINOPHEN 325 MG TABLET 650 MG PO (19:48)
--- NOTE | 2024-01-25 19:51 | ED.GENADULT ---
HPI - General Adult General Chief complaint: Dizziness Stated complaint: rapid heart rate over 100 for past 4 hrs Time Seen by Provider: 01/25/24 16:49 Source: patient Mode of arrival: Ambulatory History of Present Illness HPI narrative: 28-year-old female who denies substantial medical history presents with episodes of tachycardia and malaise today. She states she felt her heart beat fast and her watch said it was quick a few times today. She denies chest or abdominal or back or flank pain, head or neck pain, lightheadedness or passing out, fevers or chills, N/V, rash. She is sexually active with spouse, with no contraception, though they are not trying to get . She has fairly regular periods, with last starting recently, slightly ahead of schedule. She denies recent surgery or travel, personal history of blood clots, hormone use, smoking, drug use, recent leg swelling or pain. No cough, sore throat, rhinorrhea, or myalgias. No other new concerns. Per chart review, she has history of cardiac event monitor showing possible rare SVT. Related Data Home Medications Medication Instructions Recorded Confirmed prenat.vits,valeria,[id number] 1 tab PO DAILY 02/26/22 12/04/22 Previous Rx's Medication Instructions Recorded breast pump #1 ea 09/16/22 acetaminophen 325 mg tablet 650 mg (2 x 325 mg) PO Q6H PRN 10/24/22 Fever/Mild Pain (1-3) #30 tabs docusate sodium 100 mg capsule 200 mg (2 x 100 mg) PO DAILY #30 10/24/22 caps ferrous sulfate 325 mg (65 mg 325 mg PO DAILY #30 tabs 10/24/22 iron) tablet ibuprofen 600 mg tablet 600 mg PO Q6H PRN Fever/Mild Pain 10/24/22 (1-3) #30 tabs oxycodone 5 mg tablet 5 mg PO Q4H PRN Pain, Moderate 10/24/22 (4-6) #30 tabs Allergies Allergy/AdvReac Type Severity Reaction Status Date / Time No Known Drug Allergies Allergy Unverified 12/04/22 15:28 Review of Systems Review of Systems Narrative: Constitutional: no fever, no chills Eyes: no visual disturbance, no discharge Ears, Nose, Mouth, Throat: no rhinorrhea, no sore throat Cardiovascular: no chest pain, + palpitations Respiratory: no cough, no shortness of breath Gastrointestinal: no abdominal pain, no vomiting, no diarrhea Genitourinary: no dysuria, no hematuria Musculoskeletal: no back pain, no neck stiffness Skin: no rash, no wound Neurological: no focal weakness, no focal numbness Patient History Medical History (Updated 11/25/22 @ 11:02 by Tegan Sylvester DO) Headache (~2008) Migraines (~2008) Depression Anxiety Surgical History (Updated 10/25/22 @ 20:19 by Alicia Goyal MD) S/P History of wisdom tooth extraction Family History Father Hypertension Grandfather Stomach cancer Grandmother Breast cancer Grandfather History of heart disease History of kidney problems Alzheimer's disease Social History marital status: number of children: 0 household members: spouse lives independently: Yes housing: house pets and animals: Yes (dogs, Cats - Toxoplasmosis aware) education level: college occupational status: employed and 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 current occupational exposures/hazards: No special tobias needs: No seatbelt use: always water heater temp set < 120 deg: No (will lower) working smoke detector in home: Yes fire extinguisher in home: Yes carbon monox detector in home: Yes firearms in home: Yes firearms unloaded and locked: Yes do you feel safe at home: Yes Smoking Status: Never smoker second hand exposure: No alcohol intake: former substance use type: 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 weight has: remained stable well-balanced diet: about half the time daily servings fruits/ve-1 caffeine: Yes (200mg limit) Type(s) of exercise: walking, regular exercise and yoga frequency: 3-4 times per week Smoking Status: Never smoker alcohol intake frequency: holidays/special occasions only Substance Use Type: does not use Exam Narrative Exam Narrative: Const: no acute distress, non toxic appearing; calm, conversant, pleasant Eyes: PERRLA, EOMI ENT: mucous membranes moist Neck: supple, non-tender Resp: no respiratory distress, clear to auscultation bilaterally Card: regular rate and rhythm, no murmurs Abd: non tender diffusely, no rigidity or rebound or guarding Back: no T or L spine tenderness, no CVA tenderness bilaterally Extrem: no deformities, no swelling bilateral lower extremities, 2+ distal pulses all extremities Neuro: ANOx4, mediation commissioner 2-12 intact, intact sensation and strength all extremities, normal coordination Skin: no rash, warm and dry Initial Vital Signs Initial Vital Signs: Vital Signs Temperature 98.8 F 01/25/24 15:36 Pulse Rate 110 H 01/25/24 15:36 Respiratory Rate 18 01/25/24 15:36 Blood Pressure 140/81 01/25/24 15:36 Pulse Oximetry 100 01/25/24 15:36 Oxygen Delivery Method Room Air 01/25/24 15:36 Course Course Course Narrative: This patient presents with episodes of malaise and tachycardia today, in the setting of a history of possible SVT, though she currently feels well. No chest pain, shortness of breath, syncope, or evidence of DVT on exam. No clear evidence of infection. She is fully neurovascularly intact. I have considered a broad differential including but not limited to viral syndrome, electrolyte derangements, intravascular volume depletion, ALIN, hypothyroidism, pulmonary embolism, pneumonia, pneumothorax, anemia, among others. In this setting, I am obtaining broad workup including EKG, CBC, CMP, troponin, D-dimer, hCG, chest x-ray, TSH. EKG shows sinus tachycardia without clear acute ischemia or immediately concerning interval prolongation, without recent for comparison. Note I do see T-wave inversions in leads III and AVF and we will trend this. Repeat EKG shows sinus tachycardia with overall similar morphology, no evidence of progression, no STEMI, no immediately concerning interval prolongation. Labs show mild leukocytosis without anemia or thrombocytopenia. INR within normal limits. PTT mildly elevated. D-dimer is elevated. CMP overall reassuring. Troponin reassuring. Serum qualitative was positive, but quantitative was added which is technically within limits for non patients. Urine without clear infection. Viral swab negative. I spoke with the patient again. It is possible that she is having a miscarriage, given some recent vaginal bleeding. Her HCG is very, very low, with ectopic extremely unlikely in this setting, particularly with no abdominal pain. In addition, her D-dimer could be due to her potential miscarriage. On the chance this is an early viable , we are not pursuing CTA PE study to avoid radiation but rather obtaining DVT ultrasounds in both legs, particularly in the setting of a history and exam that does not suggest pulmonary embolism currently. I confirmed again she has had no chest pain or shortness of breath. No current evidence of SVT, though intermittent episodes of this are still possible. Patient understands that if DVT ultrasound is negative, we anticipate discharge with close follow up and return precautions. We discussed she has some EKG abnormalities, and that she will need close follow-up and strict return precautions. She and spouse understand this with no other new concerns. Radiology review of imaging below, which I agree with on my independent review: CXR: FINDINGS: Surgical changes and devices: None. Lungs and pleura: Lungs are clear. No pleural effusions or pneumothorax. Mediastinum: Mediastinal contours appear normal. Heart size is normal. Bones and chest wall: No suspicious bony lesions. Overlying soft tissues appear unremarkable. IMPRESSION: No acute cardiopulmonary abnormality is seen. Dictated by: Germania Barboza MD, PhD on 01/25/2024 at 16:[address] Machado at 8:00PM with plan to follow up TSH and DVT US. If reassuring, I anticipate discharge would be reasonable as above. Orders Ordered: ED Orders 01/25/24 15:44 XR chest 1V Stat EKG-12 Lead Stat 01/25/24 15:45 Urine Microscopic Stat 01/25/24 16:32 Beta HCG, Quant [HCG Quantitative /Beta subunit] Stat Complete Blood Count AUTO DIFF Stat Comprehensive Metabolic Panel Stat D Dimer Stat Lipase Stat Magnesium Stat PTT Partial Thromboplastin Willi Stat Test Serum,Qual Stat Prothrombin Time INR Stat Troponin & CK Cardiac Panel Stat 01/25/24 16:46 Covid-19 + FLU A/B + RSV - PCR Stat 01/25/24 17:06 EKG-12 Lead Routine 01/25/24 19:03 US extremity nonvasc lower lt Stat US extremity nonvasc lower rt Stat 01/25/24 19:51 TSH [Thyroid Stimulating Hormone] Stat Discontinued Medications Acetaminophen (Acetaminophen 325 Mg Tablet) 650 mg PO NOW ONE Stop: 01/25/24 19:46 Last Admin: 01/25/24 19:48 Dose: 650 mg Documented By: BS Vital Signs Vital signs: Vital Signs - 8 hr 01/25/24 15:36 01/25/24 17:32 01/25/24 18:01 Temperature 98.8 F Pulse Rate 110 H 98 H 100 H Respiratory Rate 18 24 Blood Pressure 140/81 Pulse Oximetry 100 100 94 Oxygen Delivery Method Room Air Room Air 01/25/24 18:02 01/25/24 18:02 01/25/24 18:30 Temperature Pulse Rate 100 H Respiratory Rate 28 H Blood Pressure 126/78 112/67 Pulse Oximetry 99 Oxygen Delivery Method 01/25/24 18:30 01/25/24 19:00 01/25/24 19:00 Temperature Pulse Rate 96 H 95 H Respiratory Rate 27 H 22 Blood Pressure 117/74 Pulse Oximetry 99 98 Oxygen Delivery Method Room Air Medical Decision Making Lab Data 01/25/24 16:32 01/25/24 16:32 Labs: Lab Results 01/25/24 01/25/24 01/25/24 Range/Units 15:45 16:32 16:46 WBC 11.2 H (4.5-11.0) X10^3/uL RBC 4.61 (4.0-5.2) X10^6/uL Hgb 13.7 (12.0-16.0) g/dL Hct 40.8 (36-46) % MCV 88.4 (80-100) fL MCH 29.8 (26-34) PG MCHC 33.7 (30-36) % RDW 13.6 (11.6-14.8) % Plt Count 270 (150-400) X10^3/uL Neut % (Auto) 78.8 H (50-75) % Lymph % (Auto) 10.9 L (25-40) % [place] % (Auto) 9.7 (3-14) % Eos % (Auto) 0.1 L (2-4) % Baso % (Auto) 0.5 (0-2) % Neut # (Auto) 8800 H (3882-2654) /uL Lymph # (Auto) 1200 (3229-4485) /uL [place] # (Auto) 1100 H (0-900) /uL Eos # (Auto) 0 (0-450) /uL Baso # (Auto) 100 (0-100) /uL PT 12.6 H (9.4-12.5) SECONDS INR 1.1 (0.9-1.3) APTT 39 H (25.1-36.5) SECONDS D-Dimer 796 H (<500) ng/ml Sodium 138 (137-145) mmol/L Potassium 4.0 (3.4-5.1) mmol/L Chloride 105 (98-107) mmol/L Carbon Dioxide 28 (22-32) mmol/L BUN 6 L (7-17) mg/dL Creatinine 0.77 (0.52-1.04) mg/dL Estimated GFR > 60 (>60) mL/min BUN/Creatinine Ratio 7.8 (6-22) Glucose 98 (70-100) mg/dL Calcium 9.0 (8.4-10.2) mg/dL Magnesium 1.7 (1.6-2.3) mg/dL Total Bilirubin 0.5 (0.2-1.3) mg/dL AST 19 (14-36) IU/L ALT 13 (<35) IU/L Alkaline Phosphatase 58 (38-126) U/L Total Creatine Kinase 33 (30-135) U/L Troponin I < 0.012 (0.01-0.034) ng/mL Total Protein 7.6 (6.3-8.2) g/dL Albumin 4.1 (3.5-5.0) g/dL Globulin 3.5 (1.7-4.1) g/dL Albumin/Globulin Ratio 1.2 (1.0-2.8) Lipase 54 (23-300) U/L HCG, Quant 3.5 mIU/mL Serum , Qual Positive H (Negative) Urine RBC None seen (0-5/HPF) Urine WBC None seen (0-5/HPF) Ur Squamous Epith Cells 0-1 /hpf (0-5/HPF) Urine Bacteria None seen (None) Ur Culture Indicated? Cult not indicated Vol Urine Centrifuged Low vol <10ml (spun) A SARS-CoV-2 (PCR) Negative (Negative) Influenza A (RT-PCR) Flu a negative (NEGATIVE) Influenza B (RT-PCR) Flu b negative (NEGATIVE) RSV (PCR) Negative (Negative) Point of Care Testing Test Results Negative Urine Dip Bedside Urine Glucose Negative Bedside Urine Bilirubin - Negative Bedside Urine Ketone - Negative Urine Specific [place] 1.015 Bedside Urine Occult Blood +/- Bedside Urine pH 6.0 Bedside Urine Protein - Negative Bedside Urine Urobilinogen - Negative Bedside Urine Nitrite - Negative Bedside Urine Leukocytes - Negative Esterase Point of care testing: Point of Care Testing Test Results Negative Urine Dip Bedside Urine Glucose Negative Bedside Urine Bilirubin - Negative Bedside Urine Ketone - Negative Urine Specific [place] 1.015 Bedside Urine Occult Blood +/- Bedside Urine pH 6.0 Bedside Urine Protein - Negative Bedside Urine Urobilinogen - Negative Bedside Urine Nitrite - Negative Bedside Urine Leukocytes - Negative Esterase Discharge Plan Departure Activity Restrictions/Additional Instructions: It was a pleasure taking care of you today. It is important to fully read and understand the below. Please ask us if you have any questions. As discussed, you have some EKG abnormalities. In addition, your test was borderline positive and it has called D-dimer is elevated. It is very important you are reassessed within 2 days by a doctor. If you feel worse or have any new symptoms, please immediately return. Take this she to your doctor for further testing. No tests or assessments are perfect, and your condition could change management coordinator time. If your symptoms change or worsen, it is very important you immediately seek medical care. If you have any new or worsening pain, lightheadedness or passing out, feeling her heart beating funny, worsening bleeding, shortness of breath, fever, vomiting, confusion, numbness, weakness, or anything else that concerns you, please immediately seek medical care. If you have been prescribed any medications: please read the drug package inserts on how to properly use the medication and any potential side effects. If you had labs (blood tests) or imaging (CT scan or x-rays) done during your visit: please follow up on the results of these with your primary care doctor, as discussed. In addition, please know the results we received today may be preliminary. Our usual practice is to follow up on tests within a few days of a patient's discharge from the Emergency Department and notify you of any changes. These may lead to changes to your treatment plan. However, the best way to obtain and interpret these test results is through your Primary Care Provider. If you need to update your contact information, please stop by the front desk officer and alert the Registration personnel before you leave the Emergency Department. Thank you for the opportunity to participate in your healthcare. We are always here and happy to see you in the future. Prescriptions: No Action (DME) breast pump Device See Rx Instructions .ROUTE .MEDSUPPLY Qty: 1 0RF Rx Instructions: As directed prenat.vits,valeria,[id number] Tablet 1 tab PO DAILY acetaminophen 325 mg Tablet 650 mg PO Q6H PRN (Reason: Fever/Mild Pain (1-3)) Qty: 30 0RF docusate sodium 100 mg Capsule 200 mg PO DAILY Qty: 30 0RF ibuprofen 600 mg Tablet 600 mg PO Q6H PRN (Reason: Fever/Mild Pain (1-3)) Qty: 30 0RF oxycodone 5 mg Tablet 5 mg PO Q4H PRN (Reason: Pain, Moderate (4-6)) Qty: 30 0RF ferrous sulfate 325 mg (65 mg iron) tablet 325 mg PO DAILY Qty: 30 0RF Referrals: Katie Lima DO [Primary Care Provider] -
[2024-01-25 20:40] LABS: Thyroid Stimulating Hormone 1.63 uIU/mL (0.47-4.68)
[2024-01-25] MEDS: KETOROLAC 30 MG/ML VIAL 15 MG IV (21:15)
[2024-01-25] MEDS: SODIUM CHLORIDE 0.9% 1,000 ML 1000 ML IV (21:15)
== END 2024-01-25 22:08 | disposition home or self-care (01) ==
PROVIDERS: Emergency Provider Emergency Medicine; PCP Family Medicine
DX: R00.0 Tachycardia, unspecified (principal); R07.9 Chest pain, unspecified; O02.1 Missed abortion
CPT/HCPCS: 0241U; 36415; 71045; 80053; 81003; 81015; 81025; 82550; 83690; 83735; 84443; 84484; 84702; 84703; 85025; 85379; 85610; 85730; 93005; 93970; 96361; 96374; 99284; 99285; J1885

== ENCOUNTER → 2024-02-04 10:48 | Outpatient (CLI) | payer BC, SELFPAY ==
[2024-02-04 13:26] LABS: Pregnancy Test Serum,Qual Positive (Negative)
== END ==
LOC: LAB 10:48
PROVIDERS: PCP Family Medicine; Referring Provider Family Medicine; Visit Provider Family Medicine
DX: N93.9 Abnormal uterine and vaginal bleeding, unspecified (principal)
CPT/HCPCS: 36415; 84703

== ENCOUNTER → 2024-02-15 14:50 | Outpatient (CLI) | payer BC, SELFPAY ==
--- NOTE | 2024-02-15 14:51 | DI.US.S_ITS ---
PROCEDURE: US PELVIC COMPLETE INDICATIONS: DATES; BLEEDING TECHNIQUE: Real-time scanning was performed of the pelvic organs, with image documentation. Additional endovaginal scanning was necessary due to incomplete visualization of the adnexal and endometrial structures by transabdominal scanning. COMPARISON: None. FINDINGS: Uterus: Uterus is anteverted and normal in size at 7.7 x 3.9 x 5.8 cm. The myometrium is homogeneous. The endometrium measures 13.5 mm combined thickness. No intrauterine . Ovaries: The right ovary measures 3.5 x 1.7 x 1.6 cm, with a calculated ovarian volume of 5.0 cc. The left ovary measures 6.2 x 3.3 x 5.3 cm, with a calculated ovarian volume of 56.4 cc. The ovaries have a normal sonographic appearance. There is a large simple cyst in right ovary measuring 4.1 x 5.5 x 3.1 cm. Superior medial to the left ovary, there is a 2.0 x 1.6 x 2.0 cm masslike structure without vascularity. There is moderate free fluid in pelvis. Other: No pathologic free abdominal or pelvic fluid. IMPRESSION: 1. There is a 2.0 x 1.6 x 2.0 cm masslike structure superior medial to the left ovary. Cannot rule out ectopic . Please correlate with serum beta HCG. 2. A large simple appearing cyst in the left ovary measuring 4.1 x 5.5 x 3.1 cm. 3. There is a moderate amount of free fluid in pelvis. The result was discussed with Dr. Knapp. We strive to produce accurate, complete, and clear reports of imaging services. To assist us in improving patient care, this report was composed using standard report templates and voice recognition software. Therefore, it may contain abnormal punctuation, insertions and/or omissions. Occasional wrong-word or sound-alike substitutions may occur. Though we review the report and make efforts to correct it, we do recommend that the report be read carefully in proper context to recognize any text inaccuracies. Dictated by: Jamie Castano M.D. on 02/15/2024 at 17:20 Approved by: Jamie Castano M.D. on 02/15/2024 at 18:15
== END ==
PROVIDERS: PCP Family Medicine; Referring Provider Family Medicine; Visit Provider Family Medicine
DX: Z32.01 Encounter for pregnancy test, result positive (principal); N83.202 Unspecified ovarian cyst, left side; N83.9 Noninflammatory disorder of ovary, fallopian tube and broad ligament, unspecified
CPT/HCPCS: 76830; 76856

== ENCOUNTER 2024-02-15 17:20 | Day surgery (SDC) | payer BC, SELFPAY ==
[2024-02-15] VITALS (9 sets, daily range): BP systolic 123–150; BP diastolic 72–88; PULSE 82–105; RESP 11–21; TEMP 36.7–37; O2SAT 97–100; BMI 27.4
--- NOTE | 2024-02-15 | PATH_ITS ---
[facility] Accession Number: [id number] No. of containers..02 Tissue . 01 Material submitted: . PART A: fallopian tube - LEFT FALLOPIAN TUBE PART B: ovary - LEFT OVARIAN CYST . 01 Diagnosis: A. LEFT FALLOPIAN TUBE, LEFT SALPINGECTOMY: Extensively dilated and inflamed fallopian tube with features of hydrosalpinx and a large thrombosed blood clot. Mild to moderate acute salpingitis is also seen. No evidence of malignancy. . B. LEFT OVARIAN CYST, RESECTION: Fragments of benign hemorrhagic corpus luteum cyst. Background with small benign physiologic cysts. No evidence of borderline tumor or malignancy. MRV 02/22/2024 1544 Local . 01 Electronically signed: . Chandrika Medina MD, Pathologist NPI- [id number] . 01 Gross description: . A. Received in formalin with two identifiers and left fallopian tube, is a dilated fallopian tube measuring 5.2 cm in length and up to 1.2 cm in diameter. The serosa is smooth, intact, and violaceous, with no cysts identified. Sectioning reveals the lumen to contain red-brown hemorrhagic material with no tissue identified. . [employer] sections to include one-half of bisected fimbriae and cross-sections are submitted in cassette A1-A2. B. Received in formalin with two identifiers and left ovarian cyst, is a milian to brown, membranous soft tissue fragment measuring 4.2 x 2.7 x 0.4 cm. No excrescences are grossly identified, and one aspect is inked blue. Sectioning reveals a milian to brown, soft cut surface. Submitted entirely in cassettes B1-B4. ([id number]) /MRV 02/17/2024 1231 Local . 01 Pathologist provided ICD-10: N83.292 . 01 CPT . 960844, [id number] Specimen Comment: A courtesy copy of this report has been sent to [phone] Performed at: 01 [facility] [address] [place] [address], [place], [place] [id number] MD Darin Wolfe MD Phone: [phone]
[2024-02-15 17:53] LABS: Add Manual Diff / Slide Review NO; Basophils Absolute Auto 100 /uL (0-100); Basophils Percent Auto 0.6 % (0-2); Eosinophils Absolute Auto 100 /uL (0-450); Eosinophils Percent Auto 0.5 % (2-4); Hematocrit 38.8 % (36-46); Hemoglobin 13.2 g/dL (12.0-16.0); Lymphocytes Absolute Auto 2300 /uL (1100-4500); Lymphocytes Percent Auto 22.4 % (25-40); Mean Corpuscular Hemoglobin 30.2 PG (26-34); Mean Corpuscular Volume 88.9 fL (80-100); Monocytes Absolute Auto 600 /uL (0-900); Monocytes Percent Auto 6.2 % (3-14); Neutrophils Absolute Auto 7100 /uL (1500-7000); Neutrophils Percent Auto 70.3 % (50-75); Platelet Count 320 X10^3/uL (150-400); Red Blood Cell Count 4.36 X10^6/uL (4.0-5.2); Red Cell Distribution Width 13.8 % (11.6-14.8); White Blood Cell Count 10.1 X10^3/uL (4.5-11.0)
[2024-02-15 18:07] LABS: Alanine Aminotransferase 15 IU/L (<35); Albumin 4.2 g/dL (3.5-5.0); Albumin Globulin Ratio 1.2 (1.0-2.8); Alkaline Phosphatase 56 U/L (38-126); Aspartate Aminotransferase 21 IU/L (14-36); BUN Creatinine Ratio 15.9 (6-22); Bilirubin Total 0.7 mg/dL (0.2-1.3); Blood Urea Nitrogen 13 mg/dL (7-17); Calcium 9.6 mg/dL (8.4-10.2); Carbon Dioxide 25 mmol/L (22-32); Chloride 106 mmol/L (98-107); Estimated Glomerular Filt Rate > 60 mL/min (>60); Globulin 3.5 g/dL (1.7-4.1); Glucose 114 mg/dL (70-100); HEMOLYSIS < 15 (0-50); Potassium 3.4 mmol/L (3.4-5.1); Sodium 138 mmol/L (137-145); Total Protein 7.7 g/dL (6.3-8.2)
--- NOTE | 2024-02-15 18:22 | ED_ITS ---
HPI - Recheck/Abnormal Lab/Rx General Chief Complaint: Recheck/Abnormal Lab/Rx Stated Complaint: US earlier, got told to come to ED Time Seen by Provider: 02/15/24 17:24 Source: patient Mode of arrival: Ambulatory History of Present Illness HPI narrative: Patient is a 29-year-old female. She has a . Was seen here in the emergency department approximately 20 days ago for an episode of tachycardia. At that time it was found that she had a positive urine test although her beta hCG was less than 10. She would started to have her normal menstrual cycle the day prior to coming to the ED that time. She did not know that she was although she was not specifically preventing a . No ultrasound was done. According to the note she was not having any specific director of exhibit development complaints. She was instructed to follow-up. On 02/04/2024 she followed up with a family medicine provider. She had labs drawn. And a pelvic ultrasound was ordered. She had a pelvic ultrasound today. She received a call telling her to come to the emergency department for concerns of an ectopic . She reports no abdominal discomfort. No fevers. No vomiting. No urinary symptoms. No change in bowel habits. Approximately 1 week ago she did have a period of time of lower abdominal discomfort but that has since gone away. Since she was in the emergency department 20 days ago she has had intermittent spotting. Right now she states she was just having some spotting when she wipes. It is not to the point where she needs to wear a panty liner or tampon. Her 1st ended in a emergent after there were issues with the baby's heart rate during her labor. Related Data Home Medications Medication Instructions Recorded Confirmed prenat.vits,valeria,[id number] 1 tab PO DAILY 02/26/22 02/04/24 Previous Rx's Medication Instructions Recorded breast pump #1 ea 09/16/22 acetaminophen 325 mg tablet 650 mg (2 x 325 mg) PO Q6H PRN 10/24/22 Fever/Mild Pain (1-3) #30 tabs ferrous sulfate 325 mg (65 mg 325 mg PO DAILY #30 tabs 10/24/22 iron) tablet Allergies Allergy/AdvReac Type Severity Reaction Status Date / Time No Known Drug Allergies Allergy Verified 02/15/24 20:10 Review of Systems Review of Systems ROS Unobtainable: All systems reviewed & are unremarkable except as noted in HPI and below Patient History Medical History Positive test Headache (~2008) Migraines (~2008) Depression Anxiety Surgical History S/P History of wisdom tooth extraction Family History Father Hypertension Grandfather Stomach cancer Grandmother Breast cancer Grandfather History of heart disease History of kidney problems Alzheimer's disease Social History marital status: number of children: 0 household members: spouse lives independently: Yes housing: house pets and animals: Yes (dogs, Cats - Toxoplasmosis aware) education level: college occupational status: employed and student current occupational exposures/hazards: No special tobias needs: No seatbelt use: always water heater temp set < 120 deg: No (will lower) working smoke detector in home: Yes fire extinguisher in home: Yes carbon monox detector in home: Yes firearms in home: Yes firearms unloaded and locked: Yes do you feel safe at home: Yes Smoking Status: Never smoker second hand exposure: No alcohol intake: former substance use type: 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 weight has: remained stable well-balanced diet: about half the time daily servings fruits/ve-1 caffeine: Yes (200mg limit) Type(s) of exercise: walking, regular exercise and yoga frequency: 3-4 times per week Smoking Status: Never smoker alcohol intake frequency: holidays/special occasions only Substance Use Type: does not use Exam Initial Vital Signs Initial Vital Signs: Vital Signs Temperature 98.6 F 02/15/24 17:22 Pulse Rate 91 H 02/15/24 17:22 Respiratory Rate 16 02/15/24 17:22 Blood Pressure 150/72 H 02/15/24 17:22 Pulse Oximetry 100 02/15/24 17:22 Oxygen Delivery Method Room Air 02/15/24 17:22 Const General: cooperative, comfortable and No ill appearing Resp Effort & Inspection: normal respiratory effort Auscultation: clear to auscultation bilaterally Cardio Rate: regular rate Rhythm: regular rhythm GI Inspection: normal to inspection and non-distended Palpation: soft, No firm, No guarding and No tender Skin General: no rashes or lesions noted Neuro General: patient alert, patient awake and moves all extremities Extrem General: capillary refill normal Course Orders Ordered: ED Orders 02/15/24 17:44 Beta HCG, Quant [HCG Quantitative /Beta subunit] Stat Complete Blood Count AUTO DIFF Stat Comprehensive Metabolic Panel Stat Type and Screen Stat 02/15/24 19:27 Consult to Obstetrics Stat Discontinued Medications Bupivacaine HCl (Bupivacaine 0.25% (Pf) Vial) 30 ml INJ NOW ONE Stop: 02/15/24 21:00 Last Admin: 02/15/24 21:00 Dose: 15 ml Documented By: JET Hydromorphone HCl (Hydromorphone 1 Mg Inj) 0 mg IV Q5MIN PRN PRN Reason: Pain, Moderate (4-6) Hydromorphone HCl (Hydromorphone 1 Mg Inj) 0 mg IV Q5MIN PRN PRN Reason: Pain, Severe (7-10) Last Admin: 02/15/24 21:37 Dose: 0.5 mg Documented By: IRVING Lactated Ringer's (Lactated Ringers) 1,000 mls @ 42 mls/hr IV CONT MACY Last Admin: 02/15/24 21:44 Dose: 42 mls/hr Documented By: Infusion: 02/15/24 21:44 Dose: Infused Documented By: Admin: 02/15/24 20:11 Dose: 42 mls/hr Documented By: IRVING Acetaminophen (Ofirmev) 1,000 mg in 100 mls @ 400 mls/hr IV NOW ONE Stop: 02/15/24 21:14 Last Infusion: 02/15/24 20:40 Dose: Infused Documented By: Admin: 02/15/24 20:21 Dose: 400 mls/hr Documented By: MAYKEL Meperidine HCl (Meperidine 50 Mg/Ml Inj) 12.5 mg IV PACUNOW PRN PRN Reason: Mild pain or shivering Metoclopramide HCl (Metoclopramide 10 Mg/2 Ml Inj) 10 mg IV NOW PRN PRN Reason: Nausea And Vomiting Ondansetron HCl (Ondansetron 4 Mg/2 Ml Inj) 4 mg IV NOW PRN PRN Reason: Nausea And Vomiting Last Admin: 02/15/24 21:35 Dose: 4 mg Documented By: CG Oxycodone HCl (Oxycodone Ir 5 Mg Tablet) 5 mg PO PACUNOW PRN PRN Reason: Mild or moderate pain Last Admin: 02/15/24 21:37 Dose: 5 mg Documented By: CG Oxycodone HCl (Oxycodone Ir 5 Mg Tablet) 5 mg PO Q4HR PRN PRN Reason: Pain, Moderate (4-6) Vital Signs Vital signs: Vital Signs - 8 hr 02/15/24 17:22 Temperature 98.6 F Pulse Rate 91 H Respiratory Rate 16 Blood Pressure 150/72 H Pulse Oximetry 100 Oxygen Delivery Method Room Air MDM - Recheck/Abnormal Lab/Rx Medical Records Attestation: I reviewed the patient's medical records. Lab Data Attestation: I reviewed the patient's lab results. 02/15/24 17:44 02/15/24 17:44 Labs: Lab Results 02/15/24 Range/Units 17:44 WBC 10.1 (4.5-11.0) X10^3/uL RBC 4.36 (4.0-5.2) X10^6/uL Hgb 13.2 (12.0-16.0) g/dL Hct 38.8 (36-46) % MCV 88.9 (80-100) fL MCH 30.2 (26-34) PG MCHC 34.0 (30-36) % RDW 13.8 (11.6-14.8) % Plt Count 320 (150-400) X10^3/uL Neut % (Auto) 70.3 (50-75) % Lymph % (Auto) 22.4 L (25-40) % Glascock % (Auto) 6.2 (3-14) % Eos % (Auto) 0.5 L (2-4) % Baso % (Auto) 0.6 (0-2) % Neut # (Auto) 7100 H (9028-8112) /uL Lymph # (Auto) 2300 (2186-5216) /uL Glascock # (Auto) 600 (0-900) /uL Eos # (Auto) 100 (0-450) /uL Baso # (Auto) 100 (0-100) /uL Sodium 138 (137-145) mmol/L Potassium 3.4 (3.4-5.1) mmol/L Chloride 106 (98-107) mmol/L Carbon Dioxide 25 (22-32) mmol/L BUN 13 (7-17) mg/dL Creatinine 0.82 (0.52-1.04) mg/dL Estimated GFR > 60 (>60) mL/min BUN/Creatinine Ratio 15.9 (6-22) Glucose 114 H (70-100) mg/dL Calcium 9.6 (8.4-10.2) mg/dL Total Bilirubin 0.7 (0.2-1.3) mg/dL AST 21 (14-36) IU/L ALT 15 (<35) IU/L Alkaline Phosphatase 56 (38-126) U/L Total Protein 7.7 (6.3-8.2) g/dL Albumin 4.2 (3.5-5.0) g/dL Globulin 3.5 (1.7-4.1) g/dL Albumin/Globulin Ratio 1.2 (1.0-2.8) HCG, Quant 79.1 mIU/mL Blood Type O Positive Antibody Screen Negative Imaging Data US - OB: Radiologist's Impression: PROCEDURE: US PELVIC COMPLETE INDICATIONS: DATES; BLEEDING TECHNIQUE: Real-time scanning was performed of the pelvic organs, with image documentation. Additional endovaginal scanning was necessary due to incomplete visualization of the adnexal and endometrial structures by transabdominal scanning. COMPARISON: None. FINDINGS: Uterus: Uterus is anteverted and normal in size at 7.7 x 3.9 x 5.8 cm. The myometrium is homogeneous. The endometrium measures 13.5 mm combined thickness. No intrauterine . Ovaries: The right ovary measures 3.5 x 1.7 x 1.6 cm, with a calculated ovarian volume of 5.0 cc. The left ovary measures 6.2 x 3.3 x 5.3 cm, with a calculated ovarian volume of 56.4 cc. The ovaries have a normal sonographic appearance. There is a large simple cyst in right ovary measuring 4.1 x 5.5 x 3.1 cm. Superior medial to the left ovary, there is a 2.0 x 1.6 x 2.0 cm masslike structure without vascularity. There is moderate free fluid in pelvis. Other: No pathologic free abdominal or pelvic fluid. IMPRESSION: 1. There is a 2.0 x 1.6 x 2.0 cm masslike structure superior medial to the left ovary. Cannot rule out ectopic . Please correlate with serum beta HCG. 2. A large simple appearing cyst in the left ovary measuring 4.1 x 5.5 x 3.1 cm. 3. There is a moderate amount of free fluid in pelvis. The result was discussed with Dr. Knapp. MDM Narrative Medical decision making narrative: The ultrasound that is included in this note was not ordered by myself. It was performed prior to her ED evaluation. I did discuss the case with the radiologist who read the scan. Patient does have a abnormally rising beta hCG. It is now 80 today. The ultrasound is not 100% convincing for an ectopic however there was a masslike structure around the left ovary. Patient is not having abdominal pain. No vaginal bleeding. Is stable. I did discuss the case with Dr. Batres on-call for director of exhibit development who evaluated the patient here in the emergency department. The plan will be is to admit for surgical intervention of possible ectopic . Patient is Rh positive Discharge Plan Departure Patient Disposition: Admitted to Surgery Clinical Impression: Ectopic Admit Date/Time: 02/15/24 19:28 Admit Provider: Karishma Batres
[2024-02-15 18:23] LABS: HCG Quantitative /Beta subunit 79.1 mIU/mL
--- NOTE | 2024-02-15 19:47 | PM.HP.1 ---
History of Present Illness History of Present Illness Date Patient Seen: 02/15/24 Time Patient Seen: 19:00 Chief complaint: US earlier, got told to come to ED Narrative: 29yo presented to the ER for evaluation of suspected ectopic . She reports irregular vaginal bleeding this month with a positive test noted in the ER, then was evaluated by her PCM on 02/03 for follow-up. Unfortunately, no hCG quant was done, however an ultrasound was ordered and completed today which showed concern for a ruptured ectopic . She is asymptomatic, and reports no abdominal pain today. She states that last week, she had severe lower abdominal pain for 1-2 days, which then resolved. She continues to have irregular light vaginal bleeding. [facility] Medical History Positive test Headache (~2008) Migraines (~2008) Depression Anxiety Surgical History S/P History of wisdom tooth extraction Family History Father Hypertension Grandfather Stomach cancer Grandmother Breast cancer Grandfather History of heart disease History of kidney problems Alzheimer's disease Social History marital status: number of children: 0 household members: spouse lives independently: Yes housing: house pets and animals: Yes (dogs, Cats - Toxoplasmosis aware) education level: college occupational status: employed and student current occupational exposures/hazards: No special tobias needs: No seatbelt use: always water heater temp set < 120 deg: No (will lower) working smoke detector in home: Yes fire extinguisher in home: Yes carbon monox detector in home: Yes firearms in home: Yes firearms unloaded and locked: Yes do you feel safe at home: Yes Smoking Status: Never smoker second hand exposure: No alcohol intake: former substance use type: 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 weight has: remained stable well-balanced diet: about half the time daily servings fruits/ve-1 caffeine: Yes (200mg limit) Type(s) of exercise: walking, regular exercise and yoga frequency: 3-4 times per week Meds Home Medications and Allergies Home Medications Medication Instructions Recorded Confirmed Type prenat.vits,valeria,[id number] 1 tab PO DAILY 02/26/22 02/04/24 History breast pump #1 ea 09/16/22 02/04/24 Rx acetaminophen 325 mg tablet 650 mg (2 x 325 mg) PO Q6H PRN 10/24/22 02/04/24 Rx Fever/Mild Pain (1-3) #30 tabs ferrous sulfate 325 mg (65 mg 325 mg PO DAILY #30 tabs 10/24/22 02/04/24 Rx iron) tablet Allergies Allergy/AdvReac Type Severity Reaction Status Date / Time No Known Drug Allergies Allergy Verified 02/15/24 17:37 Review of Systems Review of Systems ROS: Yes All systems reviewed with the patient and are negative except as otherwise documented Exam Vital Signs (past 8 hours): - 02/15/24 17:22 02/15/24 19:30 Temperature 98.6 F 98.3 F Pulse Rate 91 H 82 Respiratory Rate 16 16 Blood Pressure 150/72 H 131/83 Pulse Oximetry 100 97 Oxygen Delivery Method Room Air Room Air Oxygen Delivery Method Room Air Const General: healthy appearing, comfortable and No acute distress Resp Effort & Inspection: normal respiratory effort and able to speak in complete sentences GI Inspection: normal to inspection Palpation: soft, No guarding and No tender Other: no rebound tenderness Neuro General: patient alert and patient awake Cognition: normal cognition Speech: speech normal Psych Mood: congruent mood Affect: normal affect Objective Imaging US - abdomen: Radiologist's impression: FINDINGS: Uterus: Uterus is anteverted and normal in size at 7.7 x 3.9 x 5.8 cm. The myometrium is homogeneous. The endometrium measures 13.5 mm combined thickness. No intrauterine . Ovaries: The right ovary measures 3.5 x 1.7 x 1.6 cm, with a calculated ovarian volume of 5.0 cc. The left ovary measures 6.2 x 3.3 x 5.3 cm, with a calculated ovarian volume of 56.4 cc. The ovaries have a normal sonographic appearance. There is a large simple cyst in right ovary measuring 4.1 x 5.5 x 3.1 cm. Superior medial to the left ovary, there is a 2.0 x 1.6 x 2.0 cm masslike structure without vascularity. There is moderate free fluid in pelvis. Other: No pathologic free abdominal or pelvic fluid. IMPRESSION: 1. There is a 2.0 x 1.6 x 2.0 cm masslike structure superior medial to the left ovary. Cannot rule out ectopic . Please correlate with serum beta HCG. 2. A large simple appearing cyst in the left ovary measuring 4.1 x 5.5 x 3.1 cm. 3. There is a moderate amount of free fluid in pelvis. The result was discussed with Dr. Knapp. We strive to produce accurate, complete, and clear reports of imaging services. To assist us in improving patient care, this report was composed using standard report templates and voice recognition software. Therefore, it may contain abnormal punctuation, insertions and/or omissions. Occasional wrong-word or sound-alike substitutions may occur. Though we review the report and make efforts to correct it, we do recommend that the report be read carefully in proper context to recognize any text inaccuracies. Dictated by: Jamie Castano M.D. on 02/15/2024 at 17:20 Approved by: Jamie Castano M.D. on 02/15/2024 at 18:15 Labs 02/15/24 17:44 02/15/24 17:44 Labs: Laboratory Results - last 24 hr 02/15/24 17:44 WBC 10.1 RBC 4.36 Hgb 13.2 Hct 38.8 MCV 88.9 MCH 30.2 MCHC 34.0 RDW 13.8 Plt Count 320 Neut % (Auto) 70.3 Lymph % (Auto) 22.4 L Nicholas % (Auto) 6.2 Eos % (Auto) 0.5 L Baso % (Auto) 0.6 Neut # (Auto) 7100 H Lymph # (Auto) 2300 Nicholas # (Auto) 600 Eos # (Auto) 100 Baso # (Auto) 100 Sodium 138 Potassium 3.4 Chloride 106 Carbon Dioxide 25 BUN 13 Creatinine 0.82 Estimated GFR > 60 BUN/Creatinine Ratio 15.9 Glucose 114 H Calcium 9.6 Total Bilirubin 0.7 AST 21 ALT 15 Alkaline Phosphatase 56 Total Protein 7.7 Albumin 4.2 Globulin 3.5 Albumin/Globulin Ratio 1.2 HCG, Quant 79.1 Blood Type O Positive Antibody Screen Negative Assessment & Plan Assessment and plan (1) Abnormal : Qualifiers: Trimester: first trimester Qualified Code(s): O26.91 - related conditions, unspecified, first trimester Status: Acute Assessment & Plan narrative: 29yo with ultrasound findings suggestive of a possible ruptured ectopic , however her hCG quant is low today at 79. I discussed with the patient that she may be having a resolving ectopic, miscarriage, or a ruptured ectopic. Her presentation is irregular for a ruptured ectopic, but it is possible that it happened last week when she had pain and it is slowly resolving. It's also possible that she has an unruptured ectopic that may still rupture. Given all of this, we discussed options to include diagnostic laparoscopy vs. close interval follow-up. After discussing risk/benefit of each option, pt desires to proceed with surgery. Plan will be for diagnostic laparoscopy, possible unilateral salpingectomy, possible D&C if no abnormalities are found intra-abdominally, and other indicated procedures. Pt was counseled and consented for this surgical plan. -will proceed to the OR as discussed -no preop abx indicated -VTE risk low -anticipate same day surgery Surgery consent We discussed the risks/benefits/alternatives to the proposed procedure, to include: -risk of bleeding, requiring medications, blood products, or other procedures as indicated -risk of infection, requiring prolonged hospital stay or other procedures -risk of injury to other structures, including bowel, bladder, blood vessels, nerves, etc. which may also require additional procedures -risk of adverse reaction to anesthesia or medications -risk of venous thromboembolism and associated sequelae -risk of rare complications such as cardiac arrest, or extremely rarely, Patient is aware of the risks, and desires to proceed with planned surgical procedure. Time Spent With Patient Time with patient: 30 to 49 minutes with 50% spent counseling/coordinating care
[2024-02-15] MEDS: LACTATED RINGERS 1,000 ML 42 ML IV ×2 (20:11→21:44)
[2024-02-15] MEDS: ACETAMINOPHEN IV 1,000 MG/100 ML VIAL 400 MG IV (20:21)
--- NOTE | 2024-02-15 20:47 | SUR.OPER ---
Lithotomy on padded OR bed, head on pillow, arms secured on padded arm boards at <90 degrees abduction. Legs secured in padded yellow fins stirrups.
[2024-02-15] MEDS: BUPIVACAINE 0.25% (PF) VIAL 30 ML INJ (21:00)
--- NOTE | 2024-02-15 21:28 | P.OP_ITS ---
Operative Date/Time/Diagnoses Date of procedure: 02/15/24 Time of procedure: 20:00 Pre-op diagnosis: Suspected ectopic Post-op diagnosis: same (Confirmed left ectopic ) Procedure & Clinicians Procedure: Diagnostic laparoscopy Left salpingectomy Left ovarian cystectomy Same procedure as scheduled: Yes Indications: 29yo F with suspected ectopic based on ultrasound findings today. Surgeon: Karishma Batres Click Yes if Unassisted: Yes Anesthesia Type: General Operative Notes Findings: Approximately 75cc blood and clot in the pelvis. Dilated left fallopian tube. Enlarged left ovary with simple cyst. Normal appearing uterus, right fallopian tube, and right ovary. Normal appearing liver edge and gallbladder. Specimen(s): other (left fallopian tube, left ovarian cyst) Applied: catheter (during the case) Estimated Blood Loss (mL): 10 Blood products transfused: none Procedure in detail: The risks, benefits, indications and alternatives of the procedure were reviewed with the patient and informed consent was obtained. The pt was taken to the operating room where general anesthesia was obtained without difficulty. The pt was then placed in the low lithotomy position using gel-padded Juanito Stirrups. Sequential compression devices were placed bilaterally for VTE prophylaxis. Pt was then prepped and draped in the usual sterile fashion. A Navarro catheter was placed without difficulty. A sponge stick was placed in the vagina as a means to manipulate the uterus. Attention was then turned to the patient?s abdomen where a 5mm skin incision was made in the inferior aspect of the umbilicus after injection of 0.25% marcaine. A 5mm trocar and sleeve were then carefully introduced into the peritoneal cavity under direct visualization at a 90-degree angle while tenting up the abdominal wall. Intra-peritoneal placement was confirmed under direct visualization with the laparoscope with entry pressure <5mmHg. A pneumoperitoneum was obtained with several liters of CO2 gas, maximum pressure o f 15mmHg. Upon entry into the peritoneal cavity, structures immediately below the incision were inspected and found to be free of injury. Two additional trocars (a 5mm and a 10mm) were placed in the left lateral aspect of the abdominal wall under direct laparoscopic visualization after injection of 0.25% marcaine at each site. A survey of the pt?s abdomen and pelvis was notable for the above findings. Using an atraumatic grasper, the left fallopian tube was tented up. In a stepwise fashion, the left fallopian tube was removed from the fimbriated end to the cornual end with ultimate excision of the fallopian tube using the Powerseal. An endocatch bag was then introduced into the abdominal cavity, and the left fallopian tube was placed inside. This was then removed via the 10mm port site. Inspection of the left ovary then noted rupture of the cyst fluid with manipulation, thus the cyst wall was then excised from the left ovary with the Powerseal. The left ovarian cyst was then removed from the abdominal cavity via the 10mm port site. The pelvis was then irrigated and suctioned, and all pedicles were re-examined and noted to be hemostatic. The 10mm trocar was removed, and the Hair-Narendra device was inserted. The fascial incision was then closed with an 0-vicryl suture. The gas was then turned off and all CO2 was removed from the pt?s abdomen. The remaining trocars were then removed. The skin incision sites were reapproximated using 4-0 monocryl and dermabond. The sponge stick was removed from the vagina, and the navarro catheter was removed from the bladder. All instruments were confirmed to be removed from the vagina. At the completion of the case the sponge and needle counts were correct x 2. The patient tolerated the procedure well and was taken to the PACU in stable condition. Complications: none Post-operative Condition: stable Disposition: PACU Plan for aftercare: Discharge to home once recovered from anesthesia.
[2024-02-15] MEDS: ONDANSETRON 4 MG/2 ML INJ IV (21:35)
[2024-02-15] MEDS: HYDROMORPHONE 1 MG INJ IV (21:37)
[2024-02-15] MEDS: OXYCODONE IR 5 MG TABLET PO (21:37)
== END 2024-02-15 22:17 | disposition home or self-care (01) ==
LOC: ED 19:26 → AC 19:37 → OR 02-16 07:10
PROVIDERS: Emergency Medicine; Emergency Provider Emergency Medicine; PCP Family Medicine; Referring Provider Emergency Medicine; Visit Provider Student in an Organized Health Care Education/Training Program
PROC: (CPT 58661; principal; 2024-02-15 20:00)
DX: N70.91 Salpingitis, unspecified (principal); Z32.01 Encounter for pregnancy test, result positive; N83.12 Corpus luteum cyst of left ovary
CPT/HCPCS: 58661; 36415; 76830; 76856; 80053; 84702; 85025; 86850; 86900; 86901; 99283; G0378; J0136; J0330; J1100; J1170; J2250; J2405; J2704; J3010; J3490

== ENCOUNTER 2024-03-03 13:49 | Emergency (ER) | payer BC, SELFPAY ==
[2024-03-03 14:14] VITALS: BP 141/65; PULSE 80; RESP 16; TEMP 36.3; O2SAT 98; BMI 27.4
[2024-03-03] MEDS: ONDANSETRON 4 MG ODT SL (14:21)
== END 2024-03-03 15:52 | disposition left against medical advice (07) ==
PROVIDERS: Emergency Provider Emergency Medicine; PCP Family Medicine
DX: R42 Dizziness and giddiness (principal)
CPT/HCPCS: 99283

== ENCOUNTER → 2024-04-04 06:44 | Outpatient (CLI) | payer BC, SELFPAY ==
--- NOTE | 2024-04-04 07:00 | DI.US.S_ITS ---
PROCEDURE: US PELVIC COMPLETE INDICATIONS: RECENT LEFT TUBAL ECTOPIC TECHNIQUE: Real-time scanning was performed of the pelvic organs, with image documentation. Additional endovaginal scanning was necessary due to incomplete visualization of the adnexal and endometrial structures by transabdominal scanning. COMPARISON: [facility], US, US PELVIC COMPLETE, 02/15/2024, 15:19. FINDINGS: Uterus: Uterus is anteverted and normal in size at 6.5 x 4.6 x 5.1 cm. The myometrium is homogeneous. The endometrium measures 10 mm combined thickness. Ovaries: The right ovary measures 1.8 x 4.9 x 2.3 cm, with a calculated ovarian volume of 10.6 cc. The left ovary measures 4.1 x 2.1 x 1.8 cm, with a calculated ovarian volume of 8.3 cc. The ovaries have a normal sonographic appearance. Less than 12 follicles can be seen in each ovary. No adnexal masses are seen. Other: No pathologic free abdominal or pelvic fluid. IMPRESSION: Unremarkable exam. We strive to produce accurate, complete, and clear reports of imaging services. To assist us in improving patient care, this report was composed using standard report templates and voice recognition software. Therefore, it may contain abnormal punctuation, insertions and/or omissions. Occasional wrong-word or sound-alike substitutions may occur. Though we review the report and make efforts to correct it, we do recommend that the report be read carefully in proper context to recognize any text inaccuracies. Dictated by: Karen Perla M.D. on 04/04/2024 at 13:51 Approved by: Karen Perla M.D. on 04/04/2024 at 14:23
== END ==
LOC: US 06:44
PROVIDERS: PCP Family Medicine; Referring Provider Student in an Organized Health Care Education/Training Program; Visit Provider Student in an Organized Health Care Education/Training Program
DX: G89.18 Other acute postprocedural pain (principal); R10.9 Unspecified abdominal pain
CPT/HCPCS: 76830; 76856; 93975

== ENCOUNTER → 2025-01-19 10:48 | Outpatient (CLI) | payer BC, SELFPAY ==
--- NOTE | 2025-01-19 10:50 | DI.US.S_ITS ---
PROCEDURE: US OB <= 14 WEEKS FETUS INDICATIONS: dating and viability OUTSIDE/PRIOR DATING DATA: Last menstrual period (LMP): 11/29/2024. LMP-based estimated date of delivery (SURESH): 09/05/2025. First dating scan (date and location): 01/19/2025. Estimated date of delivery (SURESH) from first dating scan: 09/08/2025. The calculations are made using the LMP SURESH of 09/05/2025. TECHNIQUE: Real-time scanning was performed of the fetus and maternal pelvic organs, with image documentation. Endovaginal scanning was also performed to better visualize the fetus and maternal ovaries. COMPARISON: None. FINDINGS: Embryo: Present, measuring 0.9 cm, 6 weeks 6 days Heart rate: 144 beats per minute Perigestational hematoma is noted. This measures 2.7 x 4.3 x 1.4 cm. Maternal organs: Ovaries are unremarkable. IMPRESSION: Single living intrauterine at 6 weeks 6 days, SURESH of 09/08/2025 based on today's exam. This is concordant with clinical dating. Small perigestational hematoma measuring 2.7 x 4.3 x 1.4 cm. We strive to produce accurate, complete, and clear reports of imaging services. To assist us in improving patient care, this report was composed using standard report templates and voice recognition software. Therefore, it may contain abnormal punctuation, insertions and/or omissions. Occasional wrong-word or sound-alike substitutions may occur. Though we review the report and make efforts to correct it, we do recommend that the report be read carefully in proper context to recognize any text inaccuracies. Dictated by: Drew Boyer M.D. on 01/19/2025 at 15:50 Approved by: Drew Boyer M.D. on 01/19/2025 at 15:56
== END ==
PROVIDERS: PCP Family Medicine; Referring Provider Family Medicine; Visit Provider Family Medicine
DX: O09.11 Supervision of pregnancy with history of ectopic pregnancy, first trimester (principal); Z3A.01 Less than 8 weeks gestation of pregnancy
CPT/HCPCS: 76801; 76817

== ENCOUNTER → 2025-04-18 10:54 | Outpatient (CLI) | payer BC, SELFPAY ==
--- NOTE | 2025-04-18 10:55 | DI.US.S_ITS ---
PROCEDURE: US OB >= 14 WEEKS FETUS INDICATIONS: anatomy scan OUTSIDE/PRIOR DATING DATA: Last menstrual period (LMP): 11/29/2024. LMP-based estimated date of delivery (SURESH): 09/05/2025. First dating scan (date and location): 01/19/2025. Estimated date of delivery (SURESH) from first dating scan: 09/08/2025. The calculations are made using the clinical SURESH of 12/06/2024. TECHNIQUE: Real-time scanning was performed of the fetus, with image documentation and biometric measurements. Endovaginal scanning: Not performed COMPARISON: [facility], OB <= 14 WEEKS FETUS, 01/19/2025, 11:07. FINDINGS: General: A single living intrauterine gestation is present. Presentation: Variable. Placenta: Placental position is posterior, without previa. Amniotic fluid index: 15.4 cm, normal range is 5-24 cm. Single deepest vertical pocket is 5.3 cm. heart rate: 157 beats per minute. Maternal cervical canal: 4.9 cm long. Normal lower limit is 2.5 cm. biometrics: Biparietal diameter: 4.4 cm, 19 weeks 2 days Head circumference: 16.2 cm, 19 weeks 0 days Abdominal circumference: 15.7 cm, 20 weeks 6 days Femur length: 3 cm, 19 weeks 3 days Clinically estimated gestational age: 20 weeks 0 days Composite gestational age from present scan: 19 weeks 5 days Estimated weight and percentile: 327 g, 46 percentile Anatomic survey: Neuro: Ventricles are non-dilated at less than 10 mm. Cisterna magna is normal at 3-11 mm. Cerebellum is normal in size and morphology. Nuchal skin fold: Normal at less than 6 mm between 14-21 weeks gestational age. Face: Nose and lips, facial profile are normal. Spine: No evidence for spina bifida. Heart: 4-chambered heart is present, with normal ventricular outflow tracts. Diaphragm: Diaphragm is intact. Stomach: Left-sided stomach is present. Kidneys: No hydronephrosis. Normal is less than 5 mm in 2nd trimester, less than 7 mm in 3rd trimester. Cord: 3-vessel cord has orthotopic insertion. Marginal cord insertion 1.5 cm from the placental edge. Bladder: Normal in size. Extremities: All 4 extremities identified. IMPRESSION: 1. Torres living intrauterine at 19 weeks 5 days based on today's ultrasound. Fetus is in the 46 percentile for weight. 2. Normal placenta and amniotic fluid. 3. Marginal cord insertion on the placenta. Otherwise normal anatomic survey. We strive to produce accurate, complete, and clear reports of imaging services. To assist us in improving patient care, this report was composed using standard report templates and voice recognition software. Therefore, it may contain abnormal punctuation, insertions and/or omissions. Occasional wrong-word or sound-alike substitutions may occur. Though we review the report and make efforts to correct it, we do recommend that the report be read carefully in proper context to recognize any text inaccuracies. Dictated by: Curly Brown M.D. on 04/18/2025 at 21:59 Approved by: Curly Brown M.D. on 04/18/2025 at 22:05
[2025-04-18 12:44] LABS: Add Manual Diff / Slide Review NO; Basophils Absolute Auto 0 /uL (0-100); Basophils Percent Auto 0.2 % (0-2); Eosinophils Absolute Auto 100 /uL (0-450); Eosinophils Percent Auto 0.6 % (2-4); Hematocrit 36.6 % (36-46); Hemoglobin 12.8 g/dL (12.0-16.0); Lymphocytes Absolute Auto 1400 /uL (1100-4500); Lymphocytes Percent Auto 14.1 % (25-40); Mean Corpuscular HGB Conc 35.1 % (30-36); Mean Corpuscular Hemoglobin 31.7 PG (26-34); Mean Corpuscular Volume 90.4 fL (80-100); Monocytes Absolute Auto 600 /uL (0-900); Monocytes Percent Auto 5.8 % (3-14); Neutrophils Absolute Auto 7900 /uL (1500-7000); Neutrophils Percent Auto 79.3 % (50-75); Platelet Count 254 X10^3/uL (150-400); Red Blood Cell Count 4.05 X10^6/uL (4.0-5.2); Red Cell Distribution Width 13.5 % (11.6-14.8)
[2025-04-18 12:55] LABS: Appearance Urine UA CLEAR; Bilirubin Urine UA NEGATIVE (NEGATIVE); Color Urine UA YELLOW; Glucose Urine UA NEGATIVE (Negative); Ketones Urine UA 1+ (NEGATIVE); Leukocyte Esterase Urine UA NEGATIVE (NEGATIVE); Nitrite Urine UA NEGATIVE (Negative); Occult Blood Urine UA NEGATIVE (Negative); Protein Urine UA NEGATIVE (Negative); Specific Gravity Urine UA <=1.005 (1.000-1.035); Urobilinogen Urine UA 0.2 E.U./dL (0.2)
[2025-04-18 13:08] LABS: Alanine Aminotransferase 12 IU/L (<35); Albumin Globulin Ratio 1.4 (1.0-2.8); Alkaline Phosphatase 55 U/L (38-126); Aspartate Aminotransferase 20 IU/L (14-36); BUN Creatinine Ratio 15.1 (6-22); Bilirubin Total 0.4 mg/dL (0.2-1.3); Blood Urea Nitrogen 8 mg/dL (7-17); Calcium 9.6 mg/dL (8.4-10.2); Carbon Dioxide 23 mmol/L (22-32); Chloride 105 mmol/L (98-107); Estimated Glomerular Filt Rate > 60 mL/min (>60); Globulin 2.8 g/dL (1.7-4.1); Glucose 80 mg/dL (70-99); HEMOLYSIS < 15 (0-50); Potassium 4.2 mmol/L (3.4-5.1); Sodium 135 mmol/L (137-145); Total Protein 6.8 g/dL (6.3-8.2)
[2025-04-18 14:43] LABS: Urine N gonorrhoeae NOT DETECTED
[2025-04-18 14:44] LABS: Urine Chlamydia NOT DETECTED
[2025-04-18 15:51] LABS: Creatinine Urine Random 27.51 mg/dL; Protein (Total) Urine Random 15 mg/dL (0-12); Protein Creatinine Ratio Urine 0.54 GRAM/24H
[2025-04-19 04:08] LABS: Varicella IgG Antibody Non Reactive (Non Reactive)
[2025-04-19 05:10] LABS: RPR Screen Non Reactive (Non Reactive)
[2025-04-19 15:14] LABS: Hepatitis B Surface Antigen NEGATIVE s/c (NEGATIVE); Rubella Antibody IgG 15.7 IU/mL (>15)
[2025-04-19 15:17] LABS: HIV 1 & 2 Ab/Ag 4th Gen Combo NEGATIVE (NEGATIVE); Hep C Virus Ab w/Reflex Quant NEGATIVE s/c (NEGATIVE)
[2025-04-20 19:36] LABS: AFP, Serum 40.4 ng/mL (.); Calc Gestational Age Ultrasound (.); Estriol, Free 3.29 ng/mL (.); Inhibin A, Dimeric 101.79 pg/mL (.); Inhibin A, MoM 0.54 (.); Maternal Ethnicity Caucasian (.); Maternal Weight 170 lbs (.); Number of Fetuses No (.); OSBR Risk 1 IN 10000 (.); Results Report (.); Test Results *Screen Negative* (.); hCG, Serum 16341 mIU/mL (.)
== END ==
PROVIDERS: PCP Family Medicine; Referring Provider Family Medicine; Visit Provider Family Medicine
DX: G43.109 Migraine with aura, not intractable, without status migrainosus; Z3A.20 20 weeks gestation of pregnancy; O43.192 Other malformation of placenta, second trimester
CPT/HCPCS: 36415; 76811; 80053; 80055; 81003; 82105; 82570; 82677; 84156; 84702; 86336; 86787; 86803; 86850; 86900; 86901; 87086; 87389; 87491; 87591

== ENCOUNTER → 2025-06-15 08:57 | Outpatient (CLI) | payer BC, SELFPAY ==
[2025-06-15 11:11] LABS: Hematocrit 33.7 % (36-46); Hemoglobin 11.8 g/dL (12.0-16.0); Mean Corpuscular HGB Conc 34.9 % (30-36); Mean Corpuscular Hemoglobin 31.1 PG (26-34); Mean Corpuscular Volume 89.3 fL (80-100); Platelet Count 235 X10^3/uL (150-400)
[2025-06-15 11:29] LABS: GTT (PREG) 1 Hour PP 50gm Dose 106 mg/dL (76-139)
== END ==
PROVIDERS: PCP Family Medicine; Referring Provider Family Medicine; Visit Provider Family Medicine
DX: Z34.80 Encounter for supervision of other normal pregnancy, unspecified trimester (principal)
CPT/HCPCS: 36415; 82950; 85027

== ENCOUNTER 2025-09-02 17:27 | Inpatient (IN) | payer BC, SELFPAY ==
--- NOTE | 2025-09-02 18:31 | PM.OBHP.IH.1 ---
OB HPI Date/Time Date of admission: 09/02/25 Date Patient Seen: 09/02/25 Time Patient Seen: 18:32 History of Present Condition Chief complaint: labor pain SURESH Calculator Estimated Delivery Date Method Current WG Current Estimate 09/05/25 LMP (Certain) 39w 4d : 3 Para: 1 care: good care Dating criteria OB: LMP confirmed by 1st trimester US Ultrasounds: normal mid trimester US Obstetrical complications: none Medical complications OB: none Narrative: Patient presents for sudden onset painful contractions occurring every 2-3 minutes which started around noon time today. The continued for about 4 hours so she proceeded to the center to be evaluated. She has a scheduled planned for tomorrow morning. She reports that she is generally coping well with the contractions. A few of them are more painful and she has to breathe through them. Upon arrival to the Center, she did feel something like a small gush of fluid, but has not had any further leakage. Her baby continues to move normally. She denies vaginal bleeding. She confirms that she does desire permanent sterilization in the form of salpingectomy with her . Indications Operative indications ( section): previous uterine surgery Other reason(s) for admission: Observation for contractions, in the setting of history of prior Preadmission Labs Last OB Lab Results: Blood Type O Positive 04/18/25, 12:23 Antibody Screen Negative 04/18/25, 12:23 Hct, (36-46) 33.7 % L 06/15/25, 10:05 Hgb, (12.0-16.0) 11.8 g/dL L 06/15/25, 10:05 Hep Bs Antigen, (NEGATIVE) Negative s/c 04/18/25, 12:23 Hepatitis C Antibody, (NEGATIVE) Negative s/c 04/18/25, 12:23 Rubella Antibody, (>15) 15.7 IU/mL 04/18/25, 12:23 VZV IgG Antibody, (Non Reactive) Non reactive 04/18/25, 12:23 Glucose 1 Hr 50 gm, (76-139) 106 mg/dL 06/15/25, 10:05 Group B Strep (PCR) Neg for grp b strep 09/23/22, 16:11 Prior (ies) Past Pregnancies Del. Date GA/Weeks Labor Lgth Wt Sex Route Outcome Anesthesia Place Delv Breastfeed Preg Comp Name 10/23/22 40.4 12 8 lb 3 oz Male live - full term epidural IH 10 months Elvin Romero 01/24/24 ~6 ectopic Delivery Date: 10/23/22 Last Updated by: Juanita De Los Santos RN intolerance Delivery Date: 01/24/24 Last Updated by: Juanita De Los Santos RN ruptured ectopic Evaluation Evaluation Baseline heart rate: 145 Variability: Moderate (6-25) monitor accelerations: Absent Monitor Decelerations: Absent Contraction Frequency (minutes): 3 Uterine Contraction Intensity: Mild Status: Category l Dilation (cm): 1 Effacement (%): 50 Effacement: 40-50% station: -2 Position of cervix: posterior Consistency: medium Non-invasive Membranes Rupture Test: positive PFSH Medical History Ectopic (~01/2024) Headache (~2008) Depression Surgical History H/O unilateral salpingectomy (~01/2024) S/P History of wisdom tooth extraction Family History Father Age: 60 Hypertension Myocardial infarction Grandfather Stomach cancer Smoker Grandmother Breast cancer Grandfather History of heart disease History of kidney problems Alzheimer's disease Mother Age: 60 Metastatic melanoma Social History marital status: number of children: 1 household members: spouse and children lives independently: Yes caregiver/support person: Yes housing: house pets and animals: Yes (dogs, Cats - Toxoplasmosis aware) education level: master's degree 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) current occupational exposures/hazards: No special tobias needs: No seatbelt use: always water heater temp set < 120 deg: Yes working smoke detector in home: Yes fire extinguisher in home: Yes carbon monox detector in home: Yes firearms in home: Yes firearms unloaded and locked: Yes do you feel safe at home: Yes second hand exposure: No alcohol intake: former (occasional single drink when not ) substance use type: marijuana (agrees not to use while /) during the past year weight has: remained stable well-balanced diet: rarely or never daily servings fruits/ve-1 caffeine: Yes (single cup coffee in AM) Type(s) of exercise: walking and aerobic frequency: 3-4 times per week Meds Home Medications and Allergies Home Medications ?Medication ?Instructions ?Recorded ?Confirmed ?Type propranolol 10 mg tablet 10 mg PO TID PRN anxiety #30 tabs 07/10/24 08/17/25 Rx vit no.95-ferrous 1 tab PO DAILY #90 tabs 12/28/24 08/17/25 Rx fumarate 28 mg-folic acid 800 mcg tablet ( Multivitamins) venlafaxine 37.5 mg 75 mg (2 x 37.5 mg) PO DAILY #180 07/28/25 08/17/25 Rx capsule,extended release 24 hr caps hydroxyzine pamoate 25 mg capsule 25 mg PO TID PRN insomnia #30 caps 08/31/25 08/31/25 Rx Allergies Allergy/AdvReac Type Severity Reaction Status Date / Time No Known Drug Allergies Allergy Verified 08/17/25 08:32 Review of Systems Gastrointestinal Comments: Contractions Genitourinary Comments: Small gastric fluid on arrival OB Exam Vital signs Blood Pressure: 134/90 Pulse Rate: 92 Respiratory Rate: 18 Temperature: 97.7 F HENMT Head: normocephalic and atraumatic Resp Effort & Inspection: normal respiratory effort and able to speak in complete sentences Cardio Rate: regular rate Extremities Lower extremity: Yes normal to inspection External Female Exam: Yes normal external appearance Presentation: vertex Assessment and Plan Assessment and Plan Assessment and Plan narrative: IUP at 39 weeks 4 days -reassuring status History of prior x1 -desiring repeat - Consent obtained Early labor, ruptured membranes -proceed with repeat Desire for permanent sterilization -planned for right salpingectomy (previously had left salpingectomy with ruptured ectopic)
[2025-09-02 18:34] VITALS: BP 134/90; PULSE 92; RESP 18; TEMP 36.5
[2025-09-02 19:16] LABS: Add Manual Diff / Slide Review NO; Hematocrit 34.9 % (36-46); Hemoglobin 11.8 g/dL (12.0-16.0); Lymphocytes Absolute Auto 1600 /uL (1100-4500); Mean Corpuscular HGB Conc 33.9 % (30-36); Mean Corpuscular Hemoglobin 29.1 PG (26-34); Mean Corpuscular Volume 85.8 fL (80-100); Platelet Count 242 X10^3/uL (150-400)
[2025-09-02] MEDS: CITRIC ACID/SODIUM CITRATE 15 ML SOLUTION 30 ML PO (19:32)
[2025-09-02] MEDS: LACTATED RINGERS 1,000 ML 999 ML IV (19:33)
--- NOTE | 2025-09-02 21:13 | PM.OBPNLAB ---
Date/Time Date Patient Seen: 09/02/25 Time Patient Seen: 21:14 Pain Control Comments: Contractions increasingly painful, using nitrous Pelvic Exam Amniotic membrane status: Ruptured Comments: Additional loss of large volume fluid, thin meconium Contractions Contractions on admission: regular Monitor mode: External Contraction frequency (min): 2 Contraction pattern: Regular Contraction intensity: Strong/Firm Status status: Category ll ( tachycardia) Monitor Decelerations: Variable (rare) Monitor Variability: Moderate Assessment and Plan Assessment: active labor Comments: Getting epidural for pain control. Tocolysis not likely to be effective in setting of ROM and labor. Consider terbutaline for tachysystole or NRFHT. Will examine cervix after epidural for assess progress. Proceed to OR as soon as available.
--- NOTE | 2025-09-02 21:27 | P.PCN_ITS ---
Regional Block Pre-procedure Procedure: Continuous Lumbar Epidural for L&D Attending OB provider: Eleni Ferreira PMH/ROS narrative: @39+4 scheduled for repeat CS tomorrow presented with PROM and contractions. No medical or obstetric complications. Takes propranolol for anxiety, venlafaxine. ASA Class: II Labs: Hct 34.9 % (36-46) L 09/02/25 19:08 Plt Count 242 X10^3/uL (150-400) 09/02/25 19:08 Medications: Current Medications Generic Name Dose Route Start Last Admin Trade Name Freq PRN Reason Stop Dose Admin Oxytocin/Lactated Ringer's 30 unit in 500 mls @ 200 mls/hr 09/02/25 17:29 Oxytocin Premix IV CONT PRN Bleeding Protocol Oxytocin 10 unit 09/02/25 17:29 Oxytocin 10 Unit/Ml Vial IM NOW PRN Bleeding Allergies: Allergies Allergy/AdvReac Type Severity Reaction Status Date / Time No Known Drug Allergies Allergy Verified 08/17/25 08:32 Procedure Insertion date: 09/02/25 Insertion time: 21:46 Prep/Local: betadine x3 and 1% lidocaine Interspace: L34 Patient position: sitting Needle: 18 gauge Smart Surgicaltead (CSE: 27g Pencan through Hustead. Clear CSF. 1mL 0.25% mpf bupiv) Loss of resistance with: saline CHRIS at (cm): 4 Catheter placed at SKIN (cm): 5 Catheter in SPACE (cm): 6 Insertion: No CSF, No Blood, No Paresthesia with insertion, No Paresthesia with injection and No Test dose reaction Initial Medications TEST DOSE time: 21:55 TEST DOSE: 1.5% lidocaine with epinephrine 1:200k (mL): 3 BOLUS DOSE time: 22:02 BOLUS DOSE (mL): 4 BOLUS DOSE med: other (infusate) Infusion INFUSION: 0.125% bupivacaine and with fentanyl 2 mcg/mL Initial rate (mL/hr): 8 Subsequent interventions: To OR for repeat CS Post-procedure Anesthesia date START: 09/02/25 Anesthesia time START: 21:31 Anesthesia date END: 09/02/25 Anesthesia time END: 23:59 Post-procedure Anesthesia Assessment: Yes CV function: HR/BP stable, Yes Resp function: RR/sat/airway adequate, Yes Post-op hydration adequate, Yes Pain control adequate, Yes Nausea & vomiting absent, Yes Temperature > 36 C, Yes Mental status appropriate and No Anesthesia complications
--- NOTE | 2025-09-02 22:11 | PM.OBPNLAB ---
Date/Time Date Patient Seen: 09/02/25 Time Patient Seen: 22:11 Status status: Category l Heart Rate Baseline: 140 Monitor Accelerations: Present Monitor Decelerations: Absent Monitor Variability: Moderate Assessment and Plan Assessment: active labor Comments: Comfortable with epidural FHT returned to Category I. Contractions spaced out a little, now q 4 minutes. Plan for OR once available.
--- NOTE | 2025-09-03 | PATH_ITS ---
[facility] Accession Number: [id number] No. of containers..01 Tissue . 01 Material submitted: . fallopian tube - RIGHT FALLOPIAN TUBE . 01 Diagnosis: RIGHT FALLOPIAN TUBE, RIGHT SALPINGECTOMY: Histologically unremarkable fimbriated fallopian tube, full cross-sections. Negative for malignancy. MRV 09/12/2025 1534 Local . 01 Electronically signed: . Chichi Lee DO, Pathologist NPI- [id number] . 01 Gross description: . The specimen is received in formalin with two patient identifiers and right fallopian tube and consists of a 7.5 cm in length and ranging from 0.6 cm up to 1.4 cm in diameter fimbriated fallopian tube. The serosal surface is milian-purple, smooth and glistening. Sectioning shows a slightly edematous cut surface with a lumen averaging 0.3 cm. Spine Specialist sections are submitted: . A1: Fimbriated end, entirely submitted. A2: Spine Specialist sections of fallopian tube, cross-sections. ([id number]) /MRV 09/04/2025 1839 Local . 01 Pathologist provided ICD-10: O60.00 . 01 CPT . 924643 Specimen Comment: A courtesy copy of this report has been sent to [facility] Pathology Performed at: [address] [address], [place], [place] [id number] MD Darin Wolfe MD Phone: [phone]
[2025-09-03] MEDS: ACETAMINOPHEN IV 1,000 MG/100 ML VIAL 400 MG IV (00:10)
[2025-09-03] MEDS: AZITHROMYCIN 500 MG in DEXTROSE 5% IN WATER 250 ML 250 MG IV (00:25)
--- NOTE | 2025-09-03 00:51 | SUR.OPER ---
FHR 155, viable baby boy born at 0025, placenta at 0028. Cord blood and placenta handed off to OB ANIL Mendoza.
[2025-09-03 01:16] VITALS: BP 117/57; PULSE 104; RESP 16; TEMP 36.4; O2SAT 100
--- NOTE | 2025-09-03 01:20 | PM.OBCS.1 ---
Operative Date/Time/Diagnoses Date of procedure: 09/03/25 Time of procedure: 00:18 Pre-op diagnosis: SROM, history of prior CS Post-op diagnosis: same Procedure & Clinicians Procedure: Repeat Low Transverse with unilateral Salpingectomy Same procedure(s) as scheduled: Yes Indications: SROM with history of uterine surgery Surgeon: Martine Edwards Click Yes if Unassisted: No Butt Trimmer: Eleni Ferreira Reason for Butt Trimmer: Butt Trimmer required for the safe, effective, and timely completion of this surgery. The behavioral health assistant was necessary to retract upon entry into the abdomen and uterus. Assisted with delivery of the with fundal pressure. Assisted with closure with retraction, holding suture, and closure of the contralateral fascia. Anesthesia Type: Epidural Operative Notes Findings: Normal uterus, ovaries, and R fallopian tube, surgically absent left fallopian Closure Type: primary Specimen(s): cord blood Intraoperative meds administered: Pitocin Applied: Catheter Estimated Blood Loss (mL): 700 Procedure in detail: OPERATIVE COURSE: The patient arrived and was confirmed to have ruptured membranes. Due to OR staffing, she was not able to be taken to the OR immediately. Contractions intensified so epidural was placed for pain control while awaiting operating room availability. The patient was taken to the operating room where epidural anesthesia was tested and found to be adequate. She was then prepared and draped in the normal sterile fashion in the dorsal supine position with a leftward tilt. Anesthesia was tested and found to be adequate. A Pfannensteil skin incision was then made with the scalpel and carried through to the underlying layer of fascia with the scalpel. The fascia was incised in the midline and the incision extended laterally with the Palafox scissors. The superior aspect of the fascial incision was then grasped with Ronni clamps, elevated with the help of the surgical clinical reviewer, and the underlying rectus muscles dissected off bluntly and sharply where needed. Attention was then turned to the inferior aspect of the incision which, in a similar fashion, was grasped, tented up with Ronni clamps, and the rectus muscle dissected off bluntly and sharply with Palafox scissors. The rectus muscles were then in the midline, and the peritoneum was identified and entered bluntly. The peritoneal incision was then extended with good visualization of the bladder. Retraction was provided by the surgical clinical reviewer. The bladder blade was then inserted and the vesicouterine peritoneum identified, grasped with pick-ups and entered sharply with the Metzenbaum scissors. The incision was then extended laterally and the bladder flap created digitally. The bladder blade was then reinserted and the lower uterine segment incised in a transverse fashion with the scalpel, with the surgical clinical reviewer providing suction. The uterine incision was then extended superolaterally by pulling superolaterally on both sides. Membranes were ruptured and fluid was meconium stained. The bladder blade was removed the 's head was flexed out of LISA position and delivered atraumatically, with fundal pressure by the surgical clinical reviewer. The nose and mouth were suctioned with bulb suction and the cord was clamped and cut. The nose and mouth were suctioned with bulb suction and the cord was clamped and cut after a 60 second delay. The was handed off to the waiting nursing staff. Cord blood was collected. Time of delivery was 00:25. APGARS were 6/8/9 at one, five, and 10 minutes respectively. required 9 minutes of CPAP due to poor color and respiratory effort. He was quickly weaned off CPAP onto room air. The placenta was then delivered with gentle cord traction. The uterus was then exteriorized and cleared of all clots and debris. The uterine incision was repaired with 0 Vicryl in a running, locked fashion. A small extension the hysterotomy was noted on maternal left which was incorporated into the 2nd layer closure, which also utilized 0 Vicryl for an imbricating layer. Unilateral tubal ligation, right: Attention was then turned to the patient's tubal ligation. Patient has a history of prior left salpingectomy following a ruptured ectopic. Examination of left side of the uterus confirmed absence of fallopian tube. Attention was then turned to right side fallopian tube. A Aj was used to pickling operator the R fallopian tube and a LigaSure was used to remove the right fallopian tube. The fallopian tube was removed and submitted for pathology. The uterus was returned to the abdomen. The gutters were cleared of all clots. Hysterotomy was investigated and found to be hemostatic. Per clot was placed along small areas continued bleeding along the created bladder flap. The fascia was reapproximated with 0 Vicryl in a running fashion. The subcutaneous tissue was reapproximated with 3-0 vicryl. The skin was closed with 4-0 monocryl. The surgical clinical reviewer helped with retraction during closures. SPONGE AND NEEDLE COUNTS: Correct x3. DRESSING: Aquacel ANTICOAGULATION: SCDs applied prior to Surgery Preop antibiotics given (see MAR). The patient was taken to recovery room having tolerated procedure well. Complications: none Baby Clark: Delivery Date: 09/03/25 Delivery Time: 00:25 Gender: Male Presentation: vertex Position: Right Occiput Anterior Placental Delivery Description: Spontaneous Cord Vessel Description: 3 Vessels score (1 min): 6 score (5 min): 8 score (10 min): 9 Post-operative Condition: stable Disposition: PACU Aftercare: routine postop
[2025-09-03 01:23] VITALS: BP 84/51; PULSE 99; RESP 21; O2SAT 100
[2025-09-03 01:27] VITALS: BP 107/63; PULSE 83; RESP 16; O2SAT 100
[2025-09-03 01:31] VITALS: BP 102/58; PULSE 88; RESP 16; O2SAT 100
--- NOTE | 2025-09-03 01:33 | SUR.OPER ---
during procedure per OB RN 04/29
[2025-09-03 01:36] VITALS: BP 110/68; PULSE 100; RESP 16; O2SAT 98
[2025-09-03] MEDS: ACETAMINOPHEN 325 MG TABLET 650 MG PO ×3 (06:04→22:24)
[2025-09-03] MEDS: LANOLIN OINT 7 GM 1 APPLIC TOP (06:05)
[2025-09-03] MEDS: KETOROLAC 30 MG/ML VIAL IV ×3 (07:28→20:19)
[2025-09-03 08:45] LABS: Add Manual Diff / Slide Review NO; Hematocrit 30.3 % (36-46); Hemoglobin 10.2 g/dL (12.0-16.0); Lymphocytes Absolute Auto 1000 /uL (1100-4500); Mean Corpuscular HGB Conc 33.7 % (30-36); Mean Corpuscular Hemoglobin 28.8 PG (26-34); Mean Corpuscular Volume 85.5 fL (80-100); Platelet Count 207 X10^3/uL (150-400)
[2025-09-03] MEDS: PRENATAL VIT,CALC/IRON/FOLIC 1 TABLET 1 TAB PO (09:10)
[2025-09-03] MEDS: VENLAFAXINE ER 37.5 MG CAP 75 MG PO (09:10)
[2025-09-03] MEDS: DOCUSATE 100 MG CAPSULE PO (09:10)
--- NOTE | 2025-09-03 09:47 | P.PNOB_ITS ---
Subjective - OB Subjective Narrative: doing well, pain well controlled, dressing with blood at L lateral aspect Date Patient Seen: 09/03/25 Time Patient Seen: 08:30 Exam Vital Signs (past 8 hours): Oxygen Delivery Method Room Air Narrative Exam Narrative: GEN: Healthy appearing, well-developed, NAD. PSYCH: Good Judgment. AOx3. Normal memory, mood, and affect HEENT: -Head: NC/AT -Eyes: No discharge or redness CV: warm and well perfused LUNGS: breathing comfortably on RA SKIN: Warm, well perfused. No skin rashes or abnormal lesions ABd: dressing with blood at the L lateral aspect. NEURO: Ambulating with no limitations. No focal deficits Objective Labs 09/03/25 08:32 Labs: Laboratory Results - last 24 hr 09/02/25 09/03/25 19:08 08:32 WBC 12.3 H 16.5 H RBC 4.07 3.54 L Hgb 11.8 L 10.2 L Hct 34.9 L 30.3 L MCV 85.8 85.5 MCH 29.1 28.8 MCHC 33.9 33.7 RDW 14.8 14.7 Plt Count 242 207 Neut % (Auto) 77.9 H 85.7 H Lymph % (Auto) 13[address] [place] % (Auto) 7.7 7.4 Eos % (Auto) 0.5 L 0.0 L Baso % (Auto) 0.7 0.6 Neut # (Auto) 9600 H 80805 H Lymph # (Auto) [address] # (Auto) 900 1200 H Eos # (Auto) 100 0 Baso # (Auto) 100 100 Blood Type O Positive Antibody Screen Negative Assessment & Plan Plan day: 1 plan OB: routine care, routine postop care and follow up 6 weeks Comments: 30 yo on POD0 following repeat CS. CS uncomplicated. doing well PP. - Pain well controlled on oral medications, continue tylenol, ibuprofen and PRN oxycodone - Bleeding minimal - dressg wtih - control plans: s/p unilateral tubal ligation intra-operatively with CS - f/up for f/up at 6week PP visit Time-Based Coding :: [TOTAL MINUTES] spent with patient and on the chart (including review of chart, obtaining history, exam, reviewing outside data, placing orders, documenting exam and treatment plan, and counseling patient) on [DATE].
[2025-09-04] MEDS: IBUPROFEN 600 MG TABLET PO ×2 (02:10→09:10)
[2025-09-04] MEDS: ACETAMINOPHEN 325 MG TABLET 650 MG PO ×2 (04:15→10:31)
--- NOTE | 2025-09-04 07:25 | P.DS_ITS ---
Discharge Providers Provider Date of admission: 09/02/25 18:54 Discharge Date: 09/04/25 Primary care physician: Martine Edwards MD Consults: 09/03/25 01:17 Consult to Business Data Analyst Routine Comment: Discharge provider: Martine Edwards MD Summary Time Spent with Patient Time attestation: Total time spent providing and/or coordinating discharge services: Objective Labs 09/03/25 08:32 Labs: Laboratory Results - last 24 hr 09/03/25 08:32 WBC 16.5 H RBC 3.54 L Hgb 10.2 L Hct 30.3 L MCV 85.5 MCH 28.8 MCHC 33.7 RDW 14.7 Plt Count 207 Neut % (Auto) 85.7 H Lymph % (Auto) 6.3 L [place] % (Auto) 7.4 Eos % (Auto) 0.0 L Baso % (Auto) 0.6 Neut # (Auto) 38478 H Lymph # (Auto) 1000 L [place] # (Auto) 1200 H Eos # (Auto) 0 Baso # (Auto) 100 Exam Vital Signs (past 8 hours): Oxygen Delivery Method Room Air Discharge Plan Discharge Plan Patient Disposition: Home Discharge orders & Medications Prescriptions: New oxycodone 5 mg Tablet 5 mg PO PACUNOW PRN (Reason: Mild or moderate pain) Qty: 15 0RF cholecalciferol (vitamin D3) [Baby Vitamin D3] 10 mcg/drop (400 unit/drop) drops 400 unit PO DAILY Qty: 9.2 2RF Continued hydroxyzine pamoate 25 mg capsule 25 mg PO TID PRN (Reason: insomnia) Qty: 30 0RF PNV no.95-ferrous fumarate-FA [ Multivitamins] 28 mg iron- 800 mcg tablet 1 tab PO DAILY Qty: 90 3RF venlafaxine 37.5 mg capsule,extended release 24hr 75 mg PO DAILY Qty: 180 0RF Rx Instructions: 2QD Follow up/Referrals: Martine Edwards MD [Primary Care Provider, Family Practice] - 09/07/25 1:30 pm Referral Note: Incision check Visit Report/Discharge Packet Stand Alone Forms: Discharge: Care, Patient Portal/API, Stroke Signs & Symptoms Discharge Data Primary Care Provider: Martine Edwards
[2025-09-04] MEDS: PRENATAL VIT,CALC/IRON/FOLIC 1 TABLET 1 TAB PO (09:11)
[2025-09-04] MEDS: VENLAFAXINE ER 37.5 MG CAP 75 MG PO (09:11)
[2025-09-04] MEDS: DOCUSATE 100 MG CAPSULE PO (09:11)
[2025-09-04 10:06] VITALS: BP 114/67; PULSE 80; RESP 16; TEMP 36.6
--- NOTE | 2025-09-04 19:11 | P.DS_ITS ---
Discharge Providers Provider Date of admission: 09/02/25 18:54 Discharge Date: 09/04/25 Primary care physician: Martine Edwards MD Consults: 09/03/25 01:17 Consult to Loaders Routine Comment: Discharge provider: Martine Edwards MD Summary Hospital Course Date Patient Seen: 09/04/25 Time Patient Seen: 07:00 Hospital Course: 30-year-old at 39w4d who presented with spontaneous onset of contractions and while undergoing workup, experienced rupture of membranes. Due to previous history of , she was then taken to the OR for repeat . C- section was uncomplicated aside from presence of meconium-stained fluid. Time of was 0025, at 39w5d EGA. Apgars were 6/8/9. He did require 9 minutes of CPAP for poor color and respiratory effort. complicated by marginal cord insertion on ultrasound and history of prior maternal salpingectomy for ectopic course was uncomplicated. She is ambulatiing, voiding and passing gas. Pain is well controlled with oral medications. Peripartum Data Infant Delivery Method: Section Laceration Description: None complications: none Status at Discharge Cognitive/behavioral status at discharge: oriented Functional status at discharge: independent ambulation Time Spent with Patient Time attestation: Total time spent providing and/or coordinating discharge services: Time spent: Less than 30 minutes Objective Labs 09/03/25 08:32 Exam Vital Signs (past 8 hours): Oxygen Delivery Method Room Air Narrative Exam Narrative: Gen: well appearing, NAD Skin: no rashes or pallor Abd: appropriate post-op tenderness, fundus firm below Umbilicus. Dressing partially saturated, stable from yesterday MSK: scant edema Discharge Plan Discharge Plan Patient Disposition: Home Discharge orders & Medications Prescriptions: New oxycodone 5 mg Tablet 5 mg PO PACUNOW PRN (Reason: Mild or moderate pain) Qty: 15 0RF cholecalciferol (vitamin D3) [Baby Vitamin D3] 10 mcg/drop (400 unit/drop) drops 400 unit PO DAILY Qty: 9.2 2RF Continued hydroxyzine pamoate 25 mg capsule 25 mg PO TID PRN (Reason: insomnia) Qty: 30 0RF PNV no.95-ferrous fumarate-FA [ Multivitamins] 28 mg iron- 800 mcg tablet 1 tab PO DAILY Qty: 90 3RF venlafaxine 37.5 mg capsule,extended release 24hr 75 mg PO DAILY Qty: 180 0RF Rx Instructions: 2QD Follow up/Referrals: Martine Edwards MD [Primary Care Provider, [facility]] - 09/07/25 1:30 pm Referral Note: Incision check Visit Report/Discharge Packet Stand Alone Forms: Discharge: Care, Patient Portal/API, Stroke Signs & Symptoms Discharge Data Primary Care Provider: Martine Edwards Discharges patient from system. Discharge Date/Time: 09/04/25 11:00
== END 2025-09-04 11:00 | disposition home or self-care (01) | DRG 785 ==
PROVIDERS: Admitting Provider Student in an Organized Health Care Education/Training Program; PCP Family Medicine; Referring Provider Student in an Organized Health Care Education/Training Program; Visit Provider Student in an Organized Health Care Education/Training Program
PROC: (CPT 59514; principal; 2025-09-02 23:45)
DX: O34.211 Maternal care for low transverse scar from previous cesarean delivery (principal); Z3A.39 39 weeks gestation of pregnancy; Z37.0 Single live birth; Z30.2 Encounter for sterilization; Z90.79 Acquired absence of other genital organ(s); O76 Abnormality in fetal heart rate and rhythm complicating labor and delivery; O43.193 Other malformation of placenta, third trimester
CPT/HCPCS: 36415; 59025; 59050; 85025; 86850; 86900; 86901; G0378; G0379; J0131; J0689; J1100; J1885; J2405; J7060; J7120